=== PATIENT | male | born 1960 | race African-American/Black ===

== ENCOUNTER 2023-06-15 08:28 | Outpatient (AMB) | payer MEDICARE, MEDICAID, SELFPAY ==
[2023-06-15 08:44] VITALS: BP 184/82; PULSE 74; RESP 20; O2SAT 98; BMI 26.3
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
== END 2023-06-15 09:23 | disposition home or self-care (01) ==
PROVIDERS: PCP Internal Medicine; Visit Provider Registered Nurse Emergency
DX: M54.2 Cervicalgia (principal); G89.29 Other chronic pain; M47.812 Spondylosis without myelopathy or radiculopathy, cervical region; E11.9 Type 2 diabetes mellitus without complications
CPT/HCPCS: 99204

== ENCOUNTER → 2023-06-15 08:28 | Outpatient (BNVA) | payer MEDICARE, MEDICAID, SELFPAY | PROVIDERS: PCP Internal Medicine; Visit Provider Registered Nurse Emergency | DX: M54.2 Cervicalgia (principal); M47.812 Spondylosis without myelopathy or radiculopathy, cervical region; G89.29 Other chronic pain; E11.9 Type 2 diabetes mellitus without complications | CPT/HCPCS: 99202 ==

== ENCOUNTER 2023-08-10 13:26 | Outpatient (AMB) | payer MEDICARE, MEDICAID, SELFPAY ==
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
[2023-08-10 13:33] VITALS: BP 150/72; PULSE 73; O2SAT 97; BMI 25.1
== END 2023-08-10 14:01 | disposition home or self-care (01) ==
PROVIDERS: PCP Internal Medicine; Visit Provider Registered Nurse Emergency
DX: M47.812 Spondylosis without myelopathy or radiculopathy, cervical region (principal); R52 Pain, unspecified
CPT/HCPCS: 99214

== ENCOUNTER → 2023-08-10 13:26 | Outpatient (BNVA) | payer MEDICARE, MEDICAID, SELFPAY | PROVIDERS: PCP Internal Medicine; Visit Provider Registered Nurse Emergency | DX: M47.812 Spondylosis without myelopathy or radiculopathy, cervical region (principal); R52 Pain, unspecified | CPT/HCPCS: 99212 ==

== ENCOUNTER 2023-08-26 14:01 | Emergency (ER) | payer MEDICARE, MEDICAID, SELFPAY ==
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
[2023-08-26 14:11] VITALS: BP 155/89; BP 210/120; PULSE 75; PULSE 76; RESP 18; TEMP 36.9; O2SAT 96; O2SAT 98; BMI 25.1
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
== END 2023-08-26 17:07 | disposition left against medical advice (07) ==
PROVIDERS: Emergency Provider Emergency Medicine
DX: S00.11XA Contusion of right eyelid and periocular area, initial encounter (principal); Y04.2XXA Assault by strike against or bumped into by another person, initial encounter; Y93.9 Activity, unspecified; Y92.9 Unspecified place or not applicable; Y99.8 Other external cause status
CPT/HCPCS: 99281

== ENCOUNTER 2023-09-06 11:00 | Outpatient (RCR) | payer MEDICARE, MEDICAID, SELFPAY ==
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
== END 2023-10-05 13:50 | disposition home or self-care (01) ==
LOC: HO.PTCHIC 11:00
PROVIDERS: PCP Internal Medicine; Visit Provider Registered Nurse Emergency
DX: M47.812 Spondylosis without myelopathy or radiculopathy, cervical region (principal); M54.2 Cervicalgia; G89.29 Other chronic pain
CPT/HCPCS: 97110; 97140; 97162; 97164

== ENCOUNTER 2023-09-23 17:32 | Emergency (ER) | payer MEDICARE, MEDICAID, SELFPAY ==
[2023-09-23 17:39] VITALS: BP 162/82; PULSE 101; O2SAT 99
[2023-09-23 17:47] VITALS: BP 160/72; PULSE 95; RESP 18; TEMP 36.8; O2SAT 94; BMI 24.6
[2023-09-23 17:51] VITALS: BP 160/72; PULSE 95; RESP 18; TEMP 36.8; O2SAT 94
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
[2023-09-23 17:55] LABS: Glucose, Whole Blood 126 mg/dL (60-115)
--- NOTE | 2023-09-23 18:05 | ED.GENADULT ---
HPI - General Adult General Chief complaint: General Medical Stated complaint: Generalized health, took drugs but not cc Time Seen by Provider: 09/23/23 18:05 Source: patient and EMS Mode of arrival: EMS Limitations: no limitations History of Present Illness HPI narrative: Patient is a 62 year old assigned male at with a history of DM and drug use presenting to the emergency department today with concern of being in a diabetic emergency. Patient states that he was concerned that he was having a diabetic emergency cause he isn't entirely sure how to take care of his diabetes. Patient states that he has an appointment with an letter of credit clerk but has not seen one yet. Patient denies any dizziness, lightheadedness, abdominal pain, nausea, vomiting, fever, chills, blurry vision, double vision, loss of vision, chest pain, difficulty breathing, shortness of breath, back pain, night sweats, pain with urination, increased urinary frequency, increased urinary urgency, blood in his urine or stool, syncope or a near syncopal episode, recent trauma or falls, bowel incontinence, bladder incontinence, bowel retention, bladder retention, or any other complaints at this time. Relieving factors: none Exacerbating factors: none Associated symptoms: denies other symptoms Treatments prior to arrival: none Related Data Home Medications ?Medication ?Instructions ?Recorded ?Confirmed albuterol sulfate 90 mcg/actuation inhalation 06/06/23 aerosol inhaler (Ventolin HFA) amlodipine 10 mg tablet 10 mg PO DAILY 06/06/23 blood sugar diagnostic ([facility] #10 ea 06/06/23 Ultra Test strips) blood-glucose meter (OneTouch #1 ea 06/06/23 Ultra2 Meter) cyclobenzaprine 5 mg tablet 5 mg PO TID PRN 06/06/23 escitalopram oxalate 10 mg tablet 10 mg PO DAILY 06/06/23 fluticasone fur. 200 mcg-umeclid 1 ea inhalation DAILY 06/06/23 62.5 mcg-vilant 25 mcg inhalat.powder (Trelegy Ellipta) gabapentin 300 mg capsule 300 mg PO TID 06/06/23 glipizide 5 mg tablet, extended 5 mg PO DAILY 06/06/23 release 24 hr ibuprofen 600 mg tablet 600 mg PO BID PRN 06/06/23 lancets 33 gauge (OneTouch Delica #100 ea 06/06/23 Plus Lancet) lisinopril 20 mg tablet 20 mg PO DAILY 06/06/23 metformin 500 mg tablet,extended 500 mg PO BID 06/06/23 release 24 hr naloxone 4 mg/actuation nasal spray 1 spray intranasal DAILY 06/06/23 Previous Rx's ?Medication ?Instructions ?Recorded baclofen 5 mg tablet 5 mg PO TID #90 tabs 08/10/23 Allergies Allergy/AdvReac Type Severity Reaction Status Date / Time Penicillins Allergy Mild ITCHING Verified 09/23/23 17:49 Review of Systems Constitutional: Constitutional: Reports no additional constitutional complaints, Denies chills, Denies fever(s) and Denies night sweats Eyes: Eyes: Reports no additional eye complaints, Denies blurry vision, Denies change in vision, Denies diplopia, Denies eye discharge, Denies loss of vision and Denies eye pain ENT: Denies dizziness Cardiovascular: Cardiovascular: Reports no additional cardiovascular complaints, Denies chest pain, Denies lightheadedness, Denies Loss of Consciousness and Denies dyspnea Respiratory: Respiratory: Reports no additional respiratory complaints and Denies dyspnea Gastrointestinal: Gastrointestinal: Reports no additional gastrointestinal complaints, Denies abdominal pain, Denies melena, Denies hematochezia, Denies change in bowel habits and Denies change in stool character Genitourinary: Genitourinary: Reports no additional male genitourinary complaints, Denies hematuria, Denies oliguria, Denies difficulty urinating, Denies dysuria, Denies urinary frequency, Denies urinary hesitancy, Denies urinary incontinence and Denies urinary urgency Musculoskeletal: Musculoskeletal: Reports no additional musculoskeletal complaints, Denies numbness and Denies tingling Neurologic: Denies dizziness, Denies loss of vision, Denies numbness and Denies tingling Psychiatric: Psychiatric: Reports no additional psychiatric complaints Endocrine: Endocrine: Reports no additional endocrine complaints Hematologic/Lymphatic: Hematologic/Lymphatic: Reports no additional hematologic/lymphatic complaints Allergic/Immunologic: Allergic/Immunologic: Reports no additional allergic/immunologic complaints PMFSH Past Medical History Attestation statement: The following information was validated with the patient. Source: old records reviewed and nursing notes reviewed Medical History HTN (hypertension) Pancreatitis, alcoholic, acute Alcohol use Hepatic steatosis Anxiety and depression Chronic obstructive pulmonary disease, unspecified Chronic lumbar radiculopathy Insomnia, unspecified House dust mite allergy Perennial non-allergic rhinitis Former smoker Severe persistent asthma, uncomplicated Hyperlipidemia, unspecified Type 2 diabetes mellitus without complications Elevated IgE level Asthma Obesity, unspecified Gastro-esophageal reflux disease without esophagitis Chronic midline low back pain without sciatica Chronic pain Alcohol use disorder Neck pain Social History Social History Alcohol intake: current Alcohol intake frequency: 3 or more drinks per day Smoked in Last 30 Days: Yes Use of substances other than those prescribed or required for medical reasons: Yes Substance Use Type: Crack/Cocaine Substance Use Frequency: Daily Last Used Substance: Hours (ago) Advance Directives: No Advance Directives Information Provided: No Do you have a plan to hurt others: No Plan Physical Exam ED Vital Signs: Vital Signs - 24 hr 09/23/23 17:47 09/23/23 17:51 09/23/23 18:11 Temperature 98.3 F 98.3 F 98.3 F Pulse Rate 95 95 95 Respiratory Rate 18 18 18 Blood Pressure 160/72 H 160/72 H 160/72 H Pulse Oximetry 94 94 94 Oxygen Delivery Method Room Air Room Air Room Air BMI result Body Mass Index 24.6 Const General: cooperative, no acute distress, alert and awake Nutritional Appearance: well nourished Orientation/consciousness: patient oriented x3 Limitations: no limitations HENMT Head: Yes normal to inspection and Yes atraumatic Ears: hearing grossly normal bilaterally and external ears normal General nose exam: Normal external nose present, no nasal discharge noted and no epistaxis Face and sinus: Yes normal facial exam, No abrasion and No laceration Mouth: Normal oral and palatal mucosa present, no drooling and no muffled voice Eyes General: appearance normal, both eyes and all related structures Periorbital: periorbital findings normal Eyelids: Yes eyelids normal Conjunctivae: conjunctivae normal Pupils: Equal, round and reactive pupils present EOM: EOMs intact bilaterally Neck Neck: Yes normal visual inspection, Yes full ROM and Yes no lymphadenopathy Chest Chest palpation & inspection: normal inspection of the chest Resp Effort & Inspection: normal respiratory effort and able to speak in complete sentences GI Inspection: Yes normal to inspection Neuro General: patient oriented x3 and moves all extremities Cranial nerves: Yes Equal, round and reactive pupils present Cognition (Neuro): normal cognition Motor exam (neuro): 5/5 motor strength present throughout Sensory Exam: Normal double simultaneous stimulation for sensation Coordination: [id number] test normal Extrem General: Yes normal to inspection, Yes full ROM and Yes capillary refill normal Psych Appearance: grossly normal Mental Status: mental status grossly normal Affect: normal affect Attitude: cooperative Thought process: Normal thought process present Thought content: Normal thought content present Insight: Good insight present (Psych) Medical Decision Making Medical Decision Making [facility] Narrative: Patient is a 62 year old assigned male at with a history of DM and drug use presenting to the emergency department today concerned about having a diabetic emergency. Patient's physical exam was unremarkable. Patient's POC was 126. I explained my physical exam findings as well as all test results to the patient. I answered all questions asked by the patient. As soon as the patient's blood sugar was checked, the patient requested to leave. Patient stated that he just wanted to make sure his sugar was OK and does not want any testing done. I stressed the importance of the patient taking his medication as prescribed. I stressed the importance of the patient following up with his primary care provider. I stressed the importance of the patient returning to the emergency department immediately if he were to develop any dizziness, shortness of breath, difficulty breathing, chest pain, blurry vision, loss of vision, nausea, vomiting, abdominal pain, fever, chills, back pain, or any other complaints. Patient verbalized agreement and understanding with this treatment plan and discharge. Differential Diagnosis Differential Diagnoses: The differential diagnosis associated with the presentation includes Diabetes Blood sugar check Admission/Observation Consideration of admission/observation: Escalation of care including admission/observation considered Patient would have been admitted to the hospital had his work up had any findings where hospital admission was appropriate and his clinical presentation warranted hospital admission. Lab Data [facility] Lab Attestation statement: I reviewed the patient's lab results. My interpretation of these results are in the [facility] Rationale portion of this note. Labs: Lab Results 09/23/23 Range/Units 17:48 POC Glucose 126 H (60-115) mg/dL Independent Historian Clinical information obtained from an independent historian. History obtained from or confirmed by: EMS (EMS provided additional history and confirmed the history provided by the patient.) Tests considered The following testing was considered but not selected: I considered a CBC, CMP, Magnesium, and beta hydroxy however, the patient declined any testing after having his POC glucose checked. Chronic Conditions Patient?s care impacted by: Diabetes Discharge Plan Discharge Clinical Impression: Diabetes Patient Disposition: Home, Self-Care Instructions: Diabetes and Nutrition (ED) Additional Instructions: Follow up with your primary care provider. Return to the emergency department immediately if your symptoms worsen or if you develop any dizziness, shortness of breath, difficulty breathing, chest pain, blurry vision, loss of vision, nausea, vomiting, abdominal pain, fever, chills, back pain, or any other complaints. Prescriptions: No Action Trelegy Ellipta 200-62.5-25 mcg blister with device 1 ea inhalation DAILY metformin 500 mg tablet extended release 24 hr 500 mg PO BID albuterol sulfate [Ventolin HFA] 90 mcg/actuation HFA aerosol inhaler inhalation gabapentin 300 mg capsule 300 mg PO TID glipizide 5 mg tablet extended release 24hr 5 mg PO DAILY cyclobenzaprine 5 mg tablet 5 mg PO TID PRN escitalopram oxalate 10 mg tablet 10 mg PO DAILY (DME) lancets [OneTouch Delica Plus Lancet] 33 gauge misc See Rx Instructions .ROUTE DAILY Qty: 100 Rx Instructions: As directed (DME) OneTouch Ultra Test Strip See Rx Instructions .ROUTE DAILY Qty: 10 Rx Instructions: As directed (DME) blood-glucose meter [OneTouch Ultra2 Meter] Misc See Rx Instructions .ROUTE DAILY Qty: 1 Rx Instructions: As directed naloxone 4 mg/actuation spray,non-aerosol 1 spray intranasal DAILY ibuprofen 600 mg tablet 600 mg PO BID PRN lisinopril 20 mg tablet 20 mg PO DAILY amlodipine 10 mg tablet 10 mg PO DAILY baclofen 5 mg tablet 5 mg PO TID Qty: 90 3RF Rx Instructions: do not take with Cyclobenzaprine. Referrals: [facility] [place] Family Medicine [Provider Group] (Call to establish and follow up with a primary care provider. If you already have a primary care provider, please follow up with them.) [facility] [place] Primary Lukasz Koenig [Provider Group] [facility] [place] Primary Rosemary Koenig [Provider Group] Interventions: ED Discharge Assessment Last Done: 09/23/23 18:11 Discharge Date/Time: 09/23/23 18:15 Print Language: Yi
[2023-09-23 18:11] VITALS: BP 160/72; PULSE 95; RESP 18; TEMP 36.8; O2SAT 94
== END 2023-09-23 18:15 | disposition home or self-care (01) ==
LOC: HO.ED 18:09
PROVIDERS: Emergency Provider Emergency Medicine Emergency Medical Services; PCP Internal Medicine
DX: E11.9 Type 2 diabetes mellitus without complications (principal); I10 Essential (primary) hypertension; E78.5 Hyperlipidemia, unspecified; K85.20 Alcohol induced acute pancreatitis without necrosis or infection; F19.90 Other psychoactive substance use, unspecified, uncomplicated; J44.9 Chronic obstructive pulmonary disease, unspecified; Z87.891 Personal history of nicotine dependence; Z79.4 Long term (current) use of insulin; Z79.84 Long term (current) use of oral hypoglycemic drugs; Z79.85 Long-term (current) use of injectable non-insulin antidiabetic drugs
CPT/HCPCS: 82947; 99282; 99284

== ENCOUNTER 2023-09-26 22:03 | Emergency (ER) | payer MEDICARE, MEDICAID, SELFPAY ==
[2023-09-26 22:07] VITALS: BP 150/78; PULSE 91; RESP 16; TEMP 36.6; O2SAT 95; BMI 23.9
--- NOTE | 2023-09-26 22:25 | ED.PSYCH ---
HPI - Psych General Chief Complaint: Psychiatric Symptoms Stated Complaint: Crisis Time Seen by Provider: 09/26/23 22:20 Related Data Home Medications ?Medication ?Instructions ?Recorded ?Confirmed albuterol sulfate 90 mcg/actuation inhalation 06/06/23 aerosol inhaler (Ventolin HFA) amlodipine 10 mg tablet 10 mg PO DAILY 06/06/23 blood sugar diagnostic ([facility] #10 ea 06/06/23 Ultra Test strips) blood-glucose meter ([facility] #1 ea 06/06/23 Ultra2 Meter) cyclobenzaprine 5 mg tablet 5 mg PO TID PRN 06/06/23 escitalopram oxalate 10 mg tablet 10 mg PO DAILY 06/06/23 fluticasone fur. 200 mcg-umeclid 1 ea inhalation DAILY 06/06/23 62.5 mcg-vilant 25 mcg inhalat.powder (Trelegy Ellipta) gabapentin 300 mg capsule 300 mg PO TID 06/06/23 glipizide 5 mg tablet, extended 5 mg PO DAILY 06/06/23 release 24 hr ibuprofen 600 mg tablet 600 mg PO BID PRN 06/06/23 lancets 33 gauge ([facility] Delica #100 ea 06/06/23 Plus Lancet) lisinopril 20 mg tablet 20 mg PO DAILY 06/06/23 metformin 500 mg tablet,extended 500 mg PO BID 06/06/23 release 24 hr naloxone 4 mg/actuation nasal spray 1 spray intranasal DAILY 06/06/23 Previous Rx's ?Medication ?Instructions ?Recorded baclofen 5 mg tablet 5 mg PO TID #90 tabs 08/10/23 Allergies Allergy/AdvReac Type Severity Reaction Status Date / Time Penicillins Allergy Mild ITCHING Verified 09/26/23 22:13 [facility] Past Medical History Medical History HTN (hypertension) Pancreatitis, alcoholic, acute Alcohol use Hepatic steatosis Anxiety and depression Chronic obstructive pulmonary disease, unspecified Chronic lumbar radiculopathy Insomnia, unspecified House dust mite allergy Perennial non-allergic rhinitis Former smoker Severe persistent asthma, uncomplicated Hyperlipidemia, unspecified Type 2 diabetes mellitus without complications Elevated IgE level Asthma Obesity, unspecified Gastro-esophageal reflux disease without esophagitis Chronic midline low back pain without sciatica Chronic pain Alcohol use disorder Neck pain Social History Social History Alcohol intake: current Alcohol intake frequency: 3 or more drinks per day Substance Use Type: Crack/Cocaine Do you have a plan to hurt others: No Plan Physical Exam Vital Signs: Vital Signs: Last Vital Signs Temp 97.8 F 09/26/23 22:07 Pulse 91 09/26/23 22:07 Resp 16 09/26/23 22:07 BP 150/78 H 09/26/23 22:07 Pulse Ox 95 09/26/23 22:07 O2 Del Method Room Air 09/26/23 22:07 BMI result Body Mass Index 23.9 Course Course Course Narrative: -this is a rapid assessment -patient comes to the emergency room stating he would like to be seen by behavioral health. However, patient states that he is feeling depressed, no SI or HI. Patient states that before he comes in to the Behavioral Health pod, he would like to hear some input from his therapist's from behavioral health, whether he could go home or if he needs to come in to be seen by our behavioral health providers. Patient states that while he waits, he would prefer to go out in the waiting room. -patient denies suicidal or HI -patient was given the option of going to the Behavioral Health pots at this time. However, as mentioned above, patient requests more time to hear back from his providers outside in the waiting room. Per patient's request, patient is being put back in the waiting room Discharge Plan Discharge Clinical Impression: Depression Prescriptions: No Action Trelegy Ellipta 200-62.5-25 mcg blister with device 1 ea inhalation DAILY metformin 500 mg tablet extended release 24 hr 500 mg PO BID albuterol sulfate [Ventolin HFA] 90 mcg/actuation HFA aerosol inhaler inhalation gabapentin 300 mg capsule 300 mg PO TID glipizide 5 mg tablet extended release 24hr 5 mg PO DAILY cyclobenzaprine 5 mg tablet 5 mg PO TID PRN escitalopram oxalate 10 mg tablet 10 mg PO DAILY (DME) lancets [OneTouch Delica Plus Lancet] 33 gauge misc See Rx Instructions .ROUTE DAILY Qty: 100 Rx Instructions: As directed (DME) OneTouch Ultra Test Strip See Rx Instructions .ROUTE DAILY Qty: 10 Rx Instructions: As directed (DME) blood-glucose meter [OneTouch Ultra2 Meter] Misc See Rx Instructions .ROUTE DAILY Qty: 1 Rx Instructions: As directed naloxone 4 mg/actuation spray,non-aerosol 1 spray intranasal DAILY ibuprofen 600 mg tablet 600 mg PO BID PRN lisinopril 20 mg tablet 20 mg PO DAILY amlodipine 10 mg tablet 10 mg PO DAILY baclofen 5 mg tablet 5 mg PO TID Qty: 90 3RF Rx Instructions: do not take with Cyclobenzaprine. Print Language: Jordanian
--- NOTE | 2023-09-26 22:25 | PC.NURSE ---
pt wants to wait for his doctor to call back to see what his doctor wants him to do. dr farah did talk with the patient and is aware of the pt will be waiting in the waiting room.
--- NOTE | 2023-09-26 22:29 | PC.NURSE ---
pt did disclose he has been drinking, pt is calm and cooperative.
== END 2023-09-27 01:03 | disposition left against medical advice (07) ==
LOC: HO.ED 09-27 01:00
PROVIDERS: Emergency Provider Emergency Medicine
DX: F33.1 Major depressive disorder, recurrent, moderate (principal); Z79.899 Other long term (current) drug therapy
CPT/HCPCS: 99283

== ENCOUNTER 2023-10-28 21:32 | Emergency (ER) | payer MEDICARE, MEDICAID, SELFPAY ==
[2023-10-28 21:37] VITALS: BP 125/74; BP 168/98; PULSE 100; PULSE 117; RESP 20; TEMP 36.7; O2SAT 97; O2SAT 98; BMI 23.5
[2023-10-28 21:39] VITALS: BP 136/83; PULSE 108; RESP 18; TEMP 36.7; O2SAT 95
--- NOTE | 2023-10-28 22:34 | PC.NURSE ---
when pt arrived to the room security has gone through his belonging for alcohol and none was found. pt has been rude to security for just walking by his door. pt informed that those words will not be tolerated at [facility] [place]. pt has made racial remarks to staff.
--- NOTE | 2023-10-28 22:39 | ECG_ITS ---
Test Reason : ANXIETY Blood Pressure : / mmHG Vent. Rate : 088 BPM Atrial Rate : 088 BPM P-R Int : 150 ms QRS Dur : 092 ms QT Int : 362 ms P-R-T Axes : 069 062 067 degrees QTc Int : 438 ms Normal sinus rhythm Minimal voltage criteria for LVH, may be normal variant ( Sokolow-Saavedra ) Cannot rule out Anterior infarct , age undetermined Abnormal ECG When compared with ECG of 08-APR-2011 00:33, No significant change was found Referred By: Yelitza Mckeon Electronically Signed By:FRANKY PARSONS MD
[2023-10-28 23:03] LABS: MANUAL DIFF FLAG NO
[2023-10-28 23:04] LABS: Basophils Absolute Auto 0.1 X10*3/uL (0.0-0.2); Basophils Percent Auto 0.5 % (0-2); Eosinophils Absolute Auto 0.1 X10*3/uL (0.0-0.4); Eosinophils Percent Auto 0.6 % (0-4); Hematocrit 43.4 % (42.0-52.0); Hemoglobin 15.3 g/dl (14.0-18.0); Imm Gran Abs Auto 0.01 X10*3/uL (0.00-0.03); Imm Gran Pct Auto 0.1 % (0.0-0.4); Lymphocytes Absolute Auto 3.4 X10*3/uL (1.2-4.9); Lymphocytes Percent Auto 36.9 % (20-40); Mean Corpuscular HGB Conc 35.3 g/dl (31.0-36.0); Mean Corpuscular Hemoglobin 31.2 pg (27.0-33.0); Mean Corpuscular Volume 88.4 fL (80.0-98.0); Mean Platelet Volume 9.8 fL (9.4-12.4); Monocytes Absolute Auto 0.7 X10*3/uL (0.1-1.2); Monocytes Percent Auto 7.1 % (2-11); Neutrophils Absolute Auto 5.1 x10*3/uL (2.0-8.3); Neutrophils Percent Auto 54.8 % (45-73); Platelet Count 209 X10*3/uL (160-400); Red Blood Count 4.91 X10*6/uL (4.60-5.80); Red Cell Distribution Width 12.4 % (11.0-16.0); White Blood Count 9.3 X10*3/uL (4.8-10.8)
[2023-10-28 23:15] LABS: Alanine Aminotransferase 24 U/L (0-40); Albumin Level 4.4 g/dL (3.5-5.0); Alkaline Phosphatase 67 U/L (39-117); Anion Gap 19 (12-20); Aspartate Amino Transferase 23 U/L (5-37); Bilirubin Total 0.5 mg/dL (0.0-1.0); Blood Urea Nitrogen 10 mg/dL (9-16); Calcium 9.5 mg/dL (8.4-10.2); Carbon Dioxide 20 mmol/L (22-29); Chloride 100 mmol/L (96-108); Creatinine Clr Calc Pharmacy 83.2; Estimated Glomerular Filt Rate > 60; Ethanol 140 mg/dL; Glucose Random 303 mg/dL (60-115); Potassium 3.8 mmol/L (3.3-5.1); Sodium 135 mmol/L (135-145)
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
[2023-10-29 00:11] LABS: Amphetamine Screen Urine Not Detected (Not Detect); Barbiturates, Urine Not Detected (Not Detect); Benzodiazepines Screen Urine Not Detected (Not Detect); Buprenorphine Scr Not Detected (Not Detect); Cannabinoid Screen Urine Not Detected (Not Detect); Cocaine Screen Urine POSITIVE (Not Detect); Fentanyl, urine Not Detected (Not Detect); Methadone Screen, Urine Not Detected (Not Detect); Opiate Screen Urine Not Detected (Not Detect); Oxycodone Screen Urine Not Detected (Not Detect); Phencyclidine Screen Urine Not Detected (Not Detect)
[2023-10-29 06:31] VITALS: BP 112/62; PULSE 74; RESP 18; TEMP 36.6; O2SAT 94
--- NOTE | 2023-10-29 10:00 | PC.NURSE ---
CARE TEAM AT BEDSIDE
[2023-10-29 10:46] VITALS: BP 144/80; PULSE 74; RESP 18; TEMP 36.8; O2SAT 97
[2023-10-29 13:51] VITALS: BP 144/80; PULSE 74; RESP 18; TEMP 36.8; O2SAT 97
== END 2023-10-29 13:51 | disposition left against medical advice (07) ==
PROVIDERS: Emergency Provider Student in an Organized Health Care Education/Training Program; PCP Internal Medicine
DX: F32.A Depression, unspecified (principal); R45.851 Suicidal ideations; F19.10 Other psychoactive substance abuse, uncomplicated; F10.10 Alcohol abuse, uncomplicated; Y90.6 Blood alcohol level of 120-199 mg/100 ml; F41.9 Anxiety disorder, unspecified; Z91.51 Personal history of suicidal behavior; I10 Essential (primary) hypertension; J44.9 Chronic obstructive pulmonary disease, unspecified; E11.9 Type 2 diabetes mellitus without complications; E78.5 Hyperlipidemia, unspecified; J45.50 Severe persistent asthma, uncomplicated; Z79.84 Long term (current) use of oral hypoglycemic drugs; Z79.899 Other long term (current) drug therapy
CPT/HCPCS: 36415; 80053; 80307; 85025; 93005; 99284; 99285; S9485

== ENCOUNTER → 2023-10-28 22:39 | Outpatient (BNV) | payer MEDICARE, MEDICAID, SELFPAY | PROVIDERS: Emergency Provider Student in an Organized Health Care Education/Training Program; PCP Internal Medicine; Visit Provider Internal Medicine Cardiovascular Disease | DX: R94.31 Abnormal electrocardiogram [ECG] [EKG] (principal) | CPT/HCPCS: 93010 ==

== ENCOUNTER 2023-11-25 17:54 | Emergency (ER) | payer MEDICARE, MEDICAID, SELFPAY ==
[2023-11-25 18:04] VITALS: BP 116/70; BP 123/77; PULSE 87; PULSE 94; RESP 18; TEMP 37.1; O2SAT 95
[2023-11-25 18:12] LABS: Glucose, Whole Blood 332 mg/dL (60-115)
--- NOTE | 2023-11-25 18:16 | ED.GENADULT ---
HPI - General Adult General Chief complaint: Psychiatric Symptoms Stated complaint: HAD CRACK COCAINE 30 MINS AGO,POC 424 HAS DIABETES Time Seen by Provider: 11/25/23 18:16 Source: patient and EMS Mode of arrival: EMS Limitations: no limitations History of Present Illness ED Provider: Slime Ponce PA-C HPI narrative: Patient is a 62 year old assigned male at with a history of crack use and diabetes presenting to the emergency department today with homicidal ideation after crack cocaine use. Patient states that he used crack cocaine earlier and now has thoughts of hurting others. Patient denies any dizziness, lightheadedness, abdominal pain, nausea, vomiting, fever, chills, blurry vision, double vision, loss of vision, chest pain, difficulty breathing, shortness of breath, back pain, night sweats, pain with urination, increased urinary frequency, increased urinary urgency, blood in his urine or stool, syncope or a near syncopal episode, recent trauma or falls, bowel incontinence, bladder incontinence, or any other complaints at this time. Onset (ago): hour(s) Relieving factors: none Exacerbating factors: none Associated symptoms: denies other symptoms Treatments prior to arrival: none Related Data Home Medications ?Medication ?Instructions ?Recorded ?Confirmed albuterol sulfate 90 mcg/actuation inhalation 06/06/23 aerosol inhaler (Ventolin HFA) amlodipine 10 mg tablet 10 mg PO DAILY 06/06/23 [facility] Ultra Test strips) blood-glucose meter (OneTouch #1 ea 06/06/23 Ultra2 Meter) cyclobenzaprine 5 mg tablet 5 mg PO TID PRN 06/06/23 escitalopram oxalate 10 mg tablet 10 mg PO DAILY 06/06/23 fluticasone fur. 200 mcg-umeclid 1 ea inhalation DAILY 06/06/23 62.5 mcg-vilant 25 mcg inhalat.powder (Trelegy Ellipta) gabapentin 300 mg capsule 300 mg PO TID 06/06/23 glipizide 5 mg tablet, extended 5 mg PO DAILY 06/06/23 release 24 hr ibuprofen 600 mg tablet 600 mg PO BID PRN 06/06/23 lancets 33 gauge (OneTouch Delica #100 ea 06/06/23 Plus Lancet) lisinopril 20 mg tablet 20 mg PO DAILY 06/06/23 metformin 500 mg tablet,extended 500 mg PO BID 06/06/23 release 24 hr naloxone 4 mg/actuation nasal spray 1 spray intranasal DAILY 06/06/23 Previous Rx's ?Medication ?Instructions ?Recorded baclofen 5 mg tablet 5 mg PO TID #90 tabs 08/10/23 Allergies Allergy/AdvReac Type Severity Reaction Status Date / Time Penicillins Allergy Mild ITCHING Verified 11/25/23 18:22 Review of Systems Constitutional: Constitutional: Reports no additional constitutional complaints, Denies chills, Denies fever(s) and Denies night sweats Eyes: Eyes: Reports no additional eye complaints, Denies blurry vision, Denies change in vision, Denies diplopia, Denies eye discharge, Denies loss of vision and Denies eye pain ENT: Denies dizziness Cardiovascular: Cardiovascular: Reports no additional cardiovascular complaints, Denies chest pain, Denies lightheadedness, Denies Loss of Consciousness and Denies dyspnea Respiratory: Respiratory: Reports no additional respiratory complaints and Denies dyspnea Gastrointestinal: Gastrointestinal: Reports no additional gastrointestinal complaints, Denies abdominal pain, Denies melena, Denies hematochezia, Denies change in bowel habits and Denies change in stool character Genitourinary: Genitourinary: Reports no additional male genitourinary complaints, Denies hematuria, Denies oliguria, Denies difficulty urinating, Denies dysuria, Denies urinary frequency, Denies urinary hesitancy, Denies urinary incontinence and Denies urinary urgency Musculoskeletal: Musculoskeletal: Reports no additional musculoskeletal complaints, Denies numbness and Denies tingling Neurologic: Denies dizziness, Denies loss of vision, Denies numbness and Denies tingling Psychiatric: Psychiatric: Reports homicidal ideation and Denies suicidal ideation Endocrine: Endocrine: Reports no additional endocrine complaints Hematologic/Lymphatic: Hematologic/Lymphatic: Reports no additional hematologic/lymphatic complaints Allergic/Immunologic: Allergic/Immunologic: Reports no additional allergic/immunologic complaints PMFSH Past Medical History Attestation statement: The following information was validated with the patient. Source: old records reviewed and nursing notes reviewed Medical History HTN (hypertension) Pancreatitis, alcoholic, acute Alcohol use Hepatic steatosis Anxiety and depression Chronic obstructive pulmonary disease, unspecified Chronic lumbar radiculopathy Insomnia, unspecified House dust mite allergy Perennial non-allergic rhinitis Former smoker Severe persistent asthma, uncomplicated Hyperlipidemia, unspecified Type 2 diabetes mellitus without complications Elevated IgE level Asthma Obesity, unspecified Gastro-esophageal reflux disease without esophagitis Chronic midline low back pain without sciatica Chronic pain Alcohol use disorder Neck pain Social History Social History Alcohol intake: current Alcohol intake frequency: 3 or more drinks per day Alcohol type: beer and hard liquor Smoked in Last 30 Days: Yes Use of substances other than those prescribed or required for medical reasons: Yes Substance Use Type: Crack/Cocaine Advance Directives: No Advance Directives Information Provided: No Do you have a plan to hurt others: No Plan Physical Exam ED Vital Signs: Vital Signs - 24 hr 11/25/23 18:04 11/25/23 18:20 11/25/23 21:09 Temperature 98.7 F 98.7 F 98.4 F Pulse Rate 87 88 70 Respiratory Rate 18 18 16 Blood Pressure 116/70 116/70 113/63 Pulse Oximetry 95 96 97 Oxygen Delivery Method Room Air Room Air Room Air BMI result Body Mass Index 24.4 Const General: cooperative, no acute distress, alert and awake Nutritional Appearance: well nourished Orientation/consciousness: patient oriented x3 Limitations: no limitations HENMT Head: Yes normal to inspection and Yes atraumatic Ears: hearing grossly normal bilaterally and external ears normal General nose exam: Normal external nose present, no nasal discharge noted and no epistaxis Face and sinus: Yes normal facial exam, No abrasion and No laceration Mouth: Normal oral and palatal mucosa present, no drooling and no muffled voice Eyes General: appearance normal, both eyes and all related structures Periorbital: periorbital findings normal Eyelids: Yes eyelids normal Conjunctivae: conjunctivae normal Pupils: Equal, round and reactive pupils present EOM: EOMs intact bilaterally Neck Neck: Yes normal visual inspection, Yes full ROM and Yes no lymphadenopathy Chest Chest palpation & inspection: normal inspection of the chest Resp Effort & Inspection: normal respiratory effort and able to speak in complete sentences GI Inspection: Yes normal to inspection Neuro General: patient oriented x3 and moves all extremities Cranial nerves: Yes Equal, round and reactive pupils present Cognition (Neuro): normal cognition Extrem General: Yes normal to inspection, Yes full ROM and Yes capillary refill normal Psych Appearance: grossly normal Mental Status: mental status grossly normal Affect: Hostile affect present Thought content: Homicidality present Medications Administered Discontinued Medications Generic Name Dose Route Start Last Admin Trade Name Minerva PRN Reason Stop Dose Admin Sodium Chloride 1,000 mls @ 999 mls/hr 11/25/23 18:30 11/25/23 20:31 Ns IV 11/25/23 19:30 Infused .Q1H1M URBAN Infusion Medical Decision Making Medical Decision Making [facility] Narrative: Patient is a 62 year old assigned male at with a history of DM and crack use presenting to the emergency department today with homicidal ideation. Patient's physical exam was as noted in the physical exam portion of this note. Patient's blood work was unremarkable. I explained my physical exam findings as well as all test results to the patient. I answered all questions asked by the patient. Patient remains in the department pending CARE team evaluation. Differential Diagnosis Differential Diagnoses: The differential diagnosis associated with the presentation includes Homicidal ideation Admission/Observation Consideration of admission/observation: Escalation of care including admission/observation considered Patient's disposition will be determined after CARE team evaluation. Lab Data [facility] Lab Attestation statement: I reviewed the patient's lab results. My interpretation of these results are in the MDM Rationale portion of this note. 11/25/23 19:00 11/25/23 19:00 Labs: Lab Results 11/25/23 11/25/23 Range/Units 18:03 19:00 WBC 4.7 L (4.8-10.8) X10*3/uL RBC 4.59 L (4.60-5.80) X10*6/uL Hgb 14.5 (14.0-18.0) g/dl Hct 42.2 (42.0-52.0) % MCV 91.9 (80.0-98.0) fL MCH 31.6 (27.0-33.0) pg MCHC 34.4 (31.0-36.0) g/dl RDW 13.6 (11.0-16.0) % Plt Count 169 (160-400) X10*3/uL MPV 10.0 (9.4-12.4) fL Immature Gran % (Auto) 0.2 (0.0-0.4) % Neut % (Auto) 60.4 (45-73) % Lymph % (Auto) 23.0 (20-40) % [place] % (Auto) 14.9 H (2-11) % Eos % (Auto) 0.9 (0-4) % Baso % (Auto) 0.6 (0-2) % Lymph # (Auto) 1.1 L (1.2-4.9) X10*3/uL [place] # (Auto) 0.7 (0.1-1.2) X10*3/uL Eos # (Auto) 0.0 (0.0-0.4) X10*3/uL Baso # (Auto) 0.0 (0.0-0.2) X10*3/uL Abs Immat Gran (auto) 0.01 (0.00-0.03) X10*3/uL Absolute Neuts (auto) 2.8 (2.0-8.3) x10*3/uL Absolute Nucleated RBC 0.000 (0.0-0.012) X10*3/uL Nucleated RBC % (auto) 0.0 (0.0-0.2) /100WBC Sodium 139 (135-145) mmol/L Potassium 3.8 (3.3-5.1) mmol/L Chloride 101 (96-108) mmol/L Carbon Dioxide 26 (22-29) mmol/L Anion Gap 16 (12-20) BUN 11 (9-16) mg/dL Creatinine 1.03 (0.5-1.4) mg/dL Estim Creat Clear Calc 71.9 Estimated GFR > 60 POC Glucose 332 H (60-115) mg/dL Random Glucose 361 H* (60-115) mg/dL Calcium 8.9 D (8.4-10.2) mg/dL Magnesium 1.9 (1.6-2.6) mg/dL Total Bilirubin 0.3 (0.0-1.0) mg/dL AST 27 (5-37) U/L ALT 24 (0-40) U/L Alkaline Phosphatase 63 (39-117) U/L Total Protein 6.8 (6.5-8.0) g/dL Albumin 4.0 (3.5-5.0) g/dL Ethyl Alcohol 108 mg/dL Influenza Type A (PCR) NEGATIVE (Negative) Influenza Type B (PCR) NEGATIVE (Negative) RSV RNA Qual (PCR) NEGATIVE (Negative) SARS-CoV-2 RNA (RT-PCR) NEGATIVE (Negative) Independent Historian Clinical information obtained from an independent historian. History obtained from or confirmed by: EMS (EMS provided additional history and confirmed the history provided by the patient.) Chronic Conditions Patient?s care impacted by: Diabetes Critical Care Time Critical Care Time Critical Care Time: Yes Total Critical Care Time: 34 Attestation: I spent 34 minutes of Critical Care Time with this patient. This does not include time spent on separately reported billable procedures. Discharge Plan Discharge Clinical Impression: Diabetes, Homicidal ideation Patient Disposition: Still a Patient Prescriptions: No Action Trelegy Ellipta 200-62.5-25 mcg blister with device 1 ea inhalation DAILY metformin 500 mg tablet extended release 24 hr 500 mg PO BID albuterol sulfate [Ventolin HFA] 90 mcg/actuation HFA aerosol inhaler inhalation gabapentin 300 mg capsule 300 mg PO TID glipizide 5 mg tablet extended release 24hr 5 mg PO DAILY cyclobenzaprine 5 mg tablet 5 mg PO TID PRN escitalopram oxalate 10 mg tablet 10 mg PO DAILY (DME) lancets [OneTouch Delica Plus Lancet] 33 gauge misc See Rx Instructions .ROUTE DAILY Qty: 100 Rx Instructions: As directed (DME) OneTouch Ultra Test Strip See Rx Instructions .ROUTE DAILY Qty: 10 Rx Instructions: As directed (DME) blood-glucose meter [OneTouch Ultra2 Meter] Misc See Rx Instructions .ROUTE DAILY Qty: 1 Rx Instructions: As directed naloxone 4 mg/actuation spray,non-aerosol 1 spray intranasal DAILY ibuprofen 600 mg tablet 600 mg PO BID PRN lisinopril 20 mg tablet 20 mg PO DAILY amlodipine 10 mg tablet 10 mg PO DAILY baclofen 5 mg tablet 5 mg PO TID Qty: 90 3RF Rx Instructions: do not take with Cyclobenzaprine. Print Language: [place]
[2023-11-25 18:20] VITALS: BP 116/70; PULSE 88; RESP 18; TEMP 37.1; O2SAT 96; BMI 24.4
--- NOTE | 2023-11-25 18:29 | PC.NURSE ---
Pt presents to ED via EMS from liquor store. Reports he used crack/cocaine approx 1 hour ago, feels weak and generally unwell. Reports he is diabetic, has not been taking his meds recently, no insulin. BGL high for EMS and here in ER. Reports feelings of HI, vague, no plan, just states I want to hurt other people . Denies SI or any pain. Alert and oriented, breathing even and unlabored. IV placed by EMS, 18G in left AC, 250 NS given in field.
--- NOTE | 2023-11-25 18:31 | PC.NURSE ---
Pt changed over with security and placed in safety clothing. Belongings secured in pod. 1:1 sitter.
[2023-11-25] MEDS: 0.9 % Sodium Chloride 1,000 ML 999 ML IV (18:32)
--- NOTE | 2023-11-25 18:38 | MHC.EDTECH ---
PT BELONGINGS IN THE LAUNDRY CLOSET
[2023-11-25 19:03] LABS: MANUAL DIFF FLAG NO
[2023-11-25 19:08] LABS: Basophils Percent Auto 0.6 % (0-2); Eosinophils Percent Auto 0.9 % (0-4); Hematocrit 42.2 % (42.0-52.0); Hemoglobin 14.5 g/dl (14.0-18.0); Imm Gran Abs Auto 0.01 X10*3/uL (0.00-0.03); Imm Gran Pct Auto 0.2 % (0.0-0.4); Lymphocytes Absolute Auto 1.1 X10*3/uL (1.2-4.9); Mean Corpuscular HGB Conc 34.4 g/dl (31.0-36.0); Mean Corpuscular Hemoglobin 31.6 pg (27.0-33.0); Mean Corpuscular Volume 91.9 fL (80.0-98.0); Monocytes Absolute Auto 0.7 X10*3/uL (0.1-1.2); Monocytes Percent Auto 14.9 % (2-11); Neutrophils Absolute Auto 2.8 x10*3/uL (2.0-8.3); Neutrophils Percent Auto 60.4 % (45-73); Platelet Count 169 X10*3/uL (160-400); Red Blood Count 4.59 X10*6/uL (4.60-5.80); Red Cell Distribution Width 13.6 % (11.0-16.0); White Blood Count 4.7 X10*3/uL (4.8-10.8)
[2023-11-25 19:32] LABS: Glucose Random 361 mg/dL (60-115)
[2023-11-25 19:33] LABS: Alanine Aminotransferase 24 U/L (0-40); Alkaline Phosphatase 63 U/L (39-117); Anion Gap 16 (12-20); Aspartate Amino Transferase 27 U/L (5-37); Bilirubin Total 0.3 mg/dL (0.0-1.0); Blood Urea Nitrogen 11 mg/dL (9-16); Calcium 8.9 mg/dL (8.4-10.2); Carbon Dioxide 26 mmol/L (22-29); Chloride 101 mmol/L (96-108); Creatinine Clr Calc Pharmacy 71.9; Estimated Glomerular Filt Rate > 60; Magnesium 1.9 mg/dL (1.6-2.6); Potassium 3.8 mmol/L (3.3-5.1); Sodium 139 mmol/L (135-145); Total Protein 6.8 g/dL (6.5-8.0)
[2023-11-25 19:47] LABS: Influenza A PCR NEGATIVE (Negative); Influenza B PCR NEGATIVE (Negative); Resp Syncy Virus RNA Qual PCR NEGATIVE (Negative); SARS COV2 PCR INHOUSE NEGATIVE (Negative)
[2023-11-25 21:09] VITALS: BP 113/63; PULSE 70; RESP 16; TEMP 36.9; O2SAT 97
--- NOTE | 2023-11-25 22:13 | PC.NURSE ---
Pt does report daily drinking, when asked amount reports whatever I feel like , hard liquor and beer. Denies hx of alcohol withdrawals. CIWA done
[2023-11-25 22:35] LABS: Ethanol 108 mg/dL
[2023-11-26 06:28] VITALS: RESP 16
--- NOTE | 2023-11-26 07:11 | PC.NURSE ---
Assumed care of patient at 0645. No signs of distress, breathing is even and unlabored. Patient is observed resting quietly in their bed.
[2023-11-26 07:15] LABS: Glucose, Whole Blood 168 mg/dL (60-115)
[2023-11-26 07:57] LABS: Amphetamine Screen Urine Not Detected (Not Detect); Barbiturates, Urine Not Detected (Not Detect); Benzodiazepines Screen Urine POSITIVE (Not Detect); Buprenorphine Scr Not Detected (Not Detect); Cannabinoid Screen Urine Not Detected (Not Detect); Cocaine Screen Urine POSITIVE (Not Detect); Fentanyl, urine POSITIVE (Not Detect); Methadone Screen, Urine Not Detected (Not Detect); Opiate Screen Urine Not Detected (Not Detect); Oxycodone Screen Urine Not Detected (Not Detect); Phencyclidine Screen Urine Not Detected (Not Detect)
[2023-11-26 09:59] VITALS: BP 131/83; PULSE 66; RESP 17; TEMP 36.2; O2SAT 98
[2023-11-26 11:37] VITALS: BP 131/83; PULSE 66; RESP 17; TEMP 36.2; O2SAT 98
--- NOTE | 2023-11-26 12:12 | MHC.CARE ---
Pt has been placed on a 7 day alert with [facility].
== END 2023-11-26 11:44 | disposition home or self-care (01) ==
PROVIDERS: Physician Assistant Medical; Emergency Provider Emergency Medicine Emergency Medical Services
DX: F14.10 Cocaine abuse, uncomplicated (principal); R45.850 Homicidal ideations; E11.9 Type 2 diabetes mellitus without complications; Z03.818 Encounter for observation for suspected exposure to other biological agents ruled out; J45.909 Unspecified asthma, uncomplicated; Z79.84 Long term (current) use of oral hypoglycemic drugs; Z79.899 Other long term (current) drug therapy
CPT/HCPCS: 0241U; 36415; 80053; 80307; 82947; 83735; 85025; 96360; 96361; 99285; S9485

== ENCOUNTER 2024-01-06 11:25 | Outpatient (AMB) | payer MEDICARE, MEDICAID, SELFPAY ==
--- NOTE | 2024-01-06 11:30 | MHC.OFFWIV ---
Intake Vital Signs 01/06/24 11:32 Height 5 ft 8 in Weight 164 lb BMI 24.9 BP 132/74 Blood Pressure Location Rt brachial Position Sitting Pulse 81 Pulse Source Pulse Oximeter Temp 98.6 F Temp Source Oral Pulse Oximetry (%) 98 Oxygen Delivery Method Room Air Intake Visit Reasons: EP cold symptoms Patient Tobacco Use Status: Former Tobacco user Allergies Penicillins Allergy (Mild, Verified 01/06/24 11:30) ITCHING Do you need a note to return to daycare/school/sports/work: Yes HPI EP cold symptoms HPI Details pt c/o cold symptoms. Cough, stuffy nose, chest tightness. Started yesterday. Patient is up-to-date with flu and COVID shots but declines COVID/flu/RSV testing today History of asthma PFSH Medical History HTN (hypertension) Pancreatitis, alcoholic, acute Alcohol use Hepatic steatosis Anxiety and depression Chronic obstructive pulmonary disease, unspecified Chronic lumbar radiculopathy Insomnia, unspecified House dust mite allergy Perennial non-allergic rhinitis Former smoker Severe persistent asthma, uncomplicated Hyperlipidemia, unspecified Type 2 diabetes mellitus without complications Elevated IgE level Asthma Obesity, unspecified Gastro-esophageal reflux disease without esophagitis Chronic midline low back pain without sciatica Chronic pain Alcohol use disorder Neck pain Social History Alcohol intake: current Alcohol intake frequency: 3 or more drinks per day Alcohol type: beer and hard liquor Patient Tobacco Use Status: Former Tobacco user Substance Use Type: Crack/Cocaine Review of Systems Const Denies chills, Denies fatigue, Denies fever(s), Denies headache(s) and Denies weakness ENT Denies dizziness and Denies headache(s) Card Details: No chest pain Denies chest pain, Denies lightheadedness, Denies dyspnea and Denies other (Palpitations) Resp Details: Mild inspiratory tightness Cough and mild wheeze Denies cough, Denies dyspnea, Denies wheezing and Denies other ( shortness of breath) Musc Denies numbness and Denies tingling Neuro Denies dizziness, Denies headache(s), Denies numbness, Denies tingling, Denies paresthesias and Denies weakness Psych Denies anxiety and Denies depression Endo Denies fatigue Aller/Immun Denies wheezing Physical Exam Vital Signs: Last Vital Signs Temp 98.6 F 01/06/24 11:32 Pulse 81 01/06/24 11:32 BP 132/74 01/06/24 11:32 Pulse Ox 98 01/06/24 11:32 Oxygen Delivery Method Room Air 01/06/24 11:32 BMI result Body Mass Index 24.9 Const General: no acute distress and well developed Nutritional Appearance: well nourished Orientation/consciousness: patient oriented x3 HEENT Head: Yes normocephalic and Yes atraumatic Eyes General: appearance normal, both eyes and all related structures Pupils: Equal, round and reactive pupils present EOM: EOMs intact bilaterally Resp Other: Coarse breath sounds with Scattered wheezing bilaterally and crackles at bilateral bases. Effort & Inspection: normal respiratory effort Auscultation: clear to auscultation bilaterally Cardio Rate: regular rate Rhythm: regular rhythm Heart sounds: S1 normal heart sound present, S2 normal heart sound present, no gallops, no murmurs and no rubs Neuro General: patient oriented x3 and gait normal Cranial nerves: Yes Equal, round and reactive pupils present Psych Affect: normal affect Assessment & Plan Assessment & Plan (1) Bronchitis: Code(s): J40 - Bronchitis, not specified as acute or chronic Plan: Likely bronchitis Patient says that Z-Tomás does not help him. Will give him levofloxacin Prednisone taper -watch blood sugars Use albuterol every 4 hours while sick Patient declined COVID/flu/RSV testing. Call or return to office if not improving Medications: New prednisone 3 tabs x 2 days then 2 tabs x 2 days then 1 tab x 2 days then 1/2 tab x 2 days orally daily; 8 days 13 tabs 0RF levofloxacin 750 mg PO Q24H 7 days 7 tabs 0RF Coding Level of Care Code Est Pt Level 3 (05629) Diagnoses Bronchitis J40
[2024-01-06 11:32] VITALS: BP 132/74; PULSE 81; TEMP 37; O2SAT 98; BMI 24.9
== END 2024-01-06 12:34 | disposition home or self-care (01) ==
PROVIDERS: PCP Internal Medicine; Visit Provider Family Medicine
DX: J40 Bronchitis, not specified as acute or chronic (principal)
CPT/HCPCS: 99213

== ENCOUNTER 2024-03-28 13:10 | Outpatient (AMB) | payer MEDICARE, MEDICAID, SELFPAY ==
[2024-03-28 13:37] VITALS: BP 162/78; PULSE 77; O2SAT 98; BMI 25.1
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
== END 2024-03-28 13:56 | disposition home or self-care (01) ==
LOC: HO.PMC 13:11
PROVIDERS: PCP Internal Medicine; Visit Provider Registered Nurse Emergency
DX: M47.812 Spondylosis without myelopathy or radiculopathy, cervical region (principal); R52 Pain, unspecified
CPT/HCPCS: 99213; G2211

== ENCOUNTER → 2024-03-28 13:10 | Outpatient (BNVA) | payer MEDICARE, MEDICAID, SELFPAY | PROVIDERS: PCP Internal Medicine; Visit Provider Registered Nurse Emergency | DX: M47.812 Spondylosis without myelopathy or radiculopathy, cervical region (principal); R52 Pain, unspecified | CPT/HCPCS: 99212 ==

== ENCOUNTER 2024-08-16 14:05 | Outpatient (AMB) | payer OTHER, SELFPAY ==
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
[2024-08-16 14:20] VITALS: BP 171/92; PULSE 102; O2SAT 98; BMI 29.2
== END 2024-08-16 14:41 | disposition home or self-care (01) ==
LOC: HO.PMC 14:05
PROVIDERS: PCP Internal Medicine; Visit Provider Registered Nurse Emergency
DX: M47.812 Spondylosis without myelopathy or radiculopathy, cervical region (principal); M54.12 Radiculopathy, cervical region; R20.2 Paresthesia of skin; M54.2 Cervicalgia; G89.29 Other chronic pain
CPT/HCPCS: 99213; G2211

== ENCOUNTER → 2024-08-16 14:05 | Outpatient (BNVA) | payer OTHER, SELFPAY | PROVIDERS: PCP Internal Medicine; Visit Provider Registered Nurse Emergency | DX: M47.812 Spondylosis without myelopathy or radiculopathy, cervical region (principal); M54.12 Radiculopathy, cervical region; M54.2 Cervicalgia; R20.2 Paresthesia of skin; G89.29 Other chronic pain | CPT/HCPCS: 99212 ==

== ENCOUNTER 2024-08-23 14:17 | Outpatient (REF) | payer OTHER, SELFPAY ==
--- OUTSIDE RECORDS SUMMARY | 2024-08-23 15:54 | XMS_ITS | Clinical Summary ---
Author Organization [facility] Address [address] [place] [address] Care Team Providers Care Maintenance Coordinator Name Role Phone Flor Coffey MD Primary Care Provider [phone] Allergies No known active allergies Medications Medication Sig Dispensed Refills Start Date End Date Status albuterol (PROVENTIL) (2.5 MG/3ML) 0.083% nebulizer solution USE 1 VIAL IN NEBULIZER EVERY 4 HOURS NEEDED FOR WHEEZING 0 10/26/2021 Active Ventolin HFA 108 (90 Base) MCG/ACT inhaler INHALE 2 PUFFS BY MOUTH EVERY 4 HOURS NEEDED FOR COUGH, WHEEZING OR SHORTNESS OF BREATH 0 09/06/2021 Active escitalopram (LEXAPRO) tablet 10 mg Take 10 mg by mouth daily. 0 08/31/2021 Active Trelegy Ellipta 200-62.5-25 MCG/INH AEPB 0 11/05/2021 Active gabapentin (NEURONTIN) 600 MG tablet Take 600 mg by mouth 3 (three) times a day. 0 09/23/2021 Active lisinopril (PRINIVIL,ZESTRIL) tablet 20 mg TAKE 1 TABLET BY MOUTH ONCE DAILY NEED LABS DONE FOR FURTHER REFILLS 0 09/22/2021 Active montelukast (SINGULAIR) 10 MG tablet Take 10 mg by mouth every night at bedtime. 0 10/20/2021 Active predniSONE (DELTASONE) tablet 20 mg 0 11/04/2021 Active traZODone (DESYREL) 50 MG tablet TAKE 1 & 1/2 (ONE & ONE-HALF) TABLETS BY MOUTH AT BEDTIME LABS NEEDED 0 09/22/2021 Active Active Problems Problem Noted Date Diagnosed Date Severe persistent asthma without complication Social History Tobacco Use Types Packs/Day Years Used Date Smoking Tobacco: Never Assessed Sex and Gender Information Value Date Recorded Sex Assigned at Male 09/29/2021 10:54 AM EDT Gender Identity Not on file Sexual Orientation Not on file Job Start Date Occupation Industry Not on file Not on file Not on file Last Filed Vital Signs Vital Sign Reading Time Taken Comments Blood Pressure 100/67 02/14/2022 1:17 PM EDT Pulse 94 02/14/2022 12:00 PM EDT Temperature 36.1 ??C (96.9 ??F) 02/14/2022 12:00 PM E DT Respiratory Rate 18 02/14/2022 12:00 PM EDT Oxygen Saturation 95% 02/14/2022 12:00 PM EDT Inhaled Oxygen Concentration - - Weight - - Height - - Body Mass Index - - Plan of Treatment Health Maintenance Due Date Last Done Comments Hepatitis C Screening 1960 COVID-19 Vaccine (#1) 06/21/1961 Depression Screening 1972 Preventative Health Evaluation 1978 DTap / Tdap / Td (1 - Tdap) 12/20/1979 Colon Cancer Screening (Colonoscopy) 2005 Shingrix-Zoster Vaccine (1 of 2) 2010 Influenza Vaccine (#1) 2024 RSV Adult > 60+ Yrs or Pregn ant (1 - 1-dose 75+ series) 12/20/2035 Hepatitis B Vaccines Aged Out No long er eligible based on patient's age to complete this topic Pneumococcal Vaccine Aged Out No long er eligible based on patient's age to complete this topic RSV Ped < 20 months Aged Out No longe r eligible based on patient's age to complete this topic Care Teams Maintenance Coordinator Relationship Specialty Start Date End Date Flor Coffey MD PCP - General Internal Medicine 09/29/21
--- OUTSIDE RECORDS SUMMARY | 2024-08-23 15:54 | XMS_ITS | Clinical Summary ---
Author Organization [address] Address [address] [place] [address] [place] [address] Phone Care Team Providers Care Rigging Slinger Name Role Phone Amadou Kaufman MD Primary Care Provider [phone] Allergies Active Allergy Reactions Criticality Noted Date Comments Other 10/05/2012 Seasonal allergies Penicillins Itching 10/11/2010 Medications baclofen (LIORESAL) 10 mg tablet TAKE 1 TABLET BY MOUTH AT BEDTIME NEEDED FOR SPASM 30 tablet 4 03/29/20 24 Active cloNIDine (CATAPRES) 0.1 mg tablet Take 1 Tablet by mouth 2 times daily. Active dapagliflozin propanediol (FARXIGA) 10 mg tablet Take 10 mg by mouth daily. 03/14/20 24 Active EPINEPHrine (EpiPen 2-Tomás) 0.3 mg/0.3 mL injection Inject 1 Device as directed as needed (anaphylaxis). Use as directed 02/15/20 23 Active fexofenadine (RICHARD) 180 mg tablet Take 1 Tablet by mouth at bedtime. 03/19/20 24 Active pen needle, diabetic 32 gauge x /32 needle Use one daily with insulin 03/06/20 24 Active lamoTRIgine (LaMICtal) 25 mg tablet Take 1 Tablet by mouth every morning. 02/13/20 24 Active multivitamin with minerals (MULTIPLE VITAMIN-MINERALS ORAL) Take 1 tablet by mouth daily. Active medical supply, miscellaneous (MISCELLANEOUS MEDICAL [facility]PPLY [facility] [place] SPACER DEVICE-ADULT use with inhaler 10/06/19 13 Active amLODIPine (NORVASC) 10 mg tablet Take 1 tablet (10 mg total) by mouth 1 (one) time each day. 90 tablet 06/19/19 25 Active cholecalciferol (VITAMIN D-3) 50 mcg (2,000 unit) tablet Take 1 tablet (2,000 Units total) by mouth 1 (one) time each day. 90 tablet 06/19/19 25 Active hydrOXYzine pamoate (VISTARIL) 25 mg capsule Take 1 capsule (25 mg total) by mouth 3 (three) times a day if needed for anxiety. Active metFORMIN (GLUCOPHAGE) 1,000 mg tablet Take 1 tablet (1,000 mg total) by mouth 2 (two) times a day. 180 tablet 06/19/19 25 Active gabapentin (NEURONTIN) 300 mg capsule Take 1 capsule (300 mg total) by mouth 4 (four) times a day. 120 capsule 06/19/19 25 Active lisinopriL (PRINIVIL,ZESTRIL ) 30 mg tablet Take 1 tablet (30 mg total) by mouth 1 (one) time each day. 90 each 06/19/19 25 026 Active doxycycline (VIBRAMYCIN) 100 mg capsule Take 1 capsule (100 mg total) by mouth 2 (two) times a day. Take with at least 8 ounces (large glass) of water, do not lie down for 30 minutes after 14 each 06/19/19 25 Active albuterol HFA (Ventolin HFA) 90 mcg/actuation inhaler Inhale 2 puffs by mouth every 4 (four) hours if needed for wheezing or shortness of breath. 6.7 g 3 06/19/19 25 Active fluticasone-umecl idinium-vilantero l (Trelegy Ellipta) 200-62.5-25 mcg inhaler Inhale 1 puff (200 mcg total) by mouth 1 (one) time each day. Rinse mouth with water after use to reduce aftertaste and incidence of candidiasis. Do not swallow. 1 each 3 06/19/19 25 Active OneTouch UltraSoft LancetsIndication s:Type 2 diabetes mellitus without complication, without long-term current use of insulin Use to check blood sugars once a day 100 each 3 08/15/19 25 Active blood-glucose meter kitIndications:Ty pe 2 diabetes mellitus without complication, without long-term current use of insulin Use this machine to test blood sugar once daily 1 each 08/15/19 25 Active FreeStyle Test test stripIndications: Type 2 diabetes mellitus without complication, without long-term current use of insulin Use to check blood sugars once a day 100 each 3 08/15/19 25 026 Active insulin degludec (Tresiba FlexTouch U-100) 100 unit/mL (3 mL) injection pen Inject 24 Units under the skin at bedtime. 15 mL 2 08/15/19 25 Active blood-glucose meter (BLOOD GLUCOSE MONITORING MISC) Use to test blood sugar once daily 02/24/20 23 025 Discontin ued(Reord er) OneTouch UltraSoft Lancets Use to test blood sugar once daily 03/31/20 23 025 Discontin ued(Reord er) insulin degludec (Tresiba FlexTouch U-100) 100 unit/mL (3 mL) injection pen Inject 40 Units under the skin at bedtime. 15 mL 2 06/19/19 25 025 Discontin ued(Reord er) Active Problems Problem Noted Date Diagnosed Date Pancreatitis, alcoholic, acute 04/04/2024 Primary hypertension 04/04/2024 Alcohol use disorder in remission 02/07/2024 Seasonal allergic rhinitis 08/14/2023 Osteoarthritis of cervical spine 05/29/2023 Alcohol use disorder 02/14/2023 Chronic midline low back pain without sciatica 0 08/12/2022 GERD (gastroesophageal reflux disease) 9 Elevated IgE level 01/08/2019 Obese 01/08/2019 Hyperlipidemia LDL goal <100 12/05/2018 Type 2 diabetes mellitus wit hout complication, without long-term current use of insulin 12/05/2018 Perennial allergic rhinitis 05/25/2017 Severe persistent asthma without complication Insomnia 03/05/2014 Chronic lumbar radiculopathy 05/31/2013 Asthma-COPD overlap syndrome 10/05/2012 Hepatic steatosis 10/11/2010 Encounters Date Type Department Care Team Description 08/14/2024 2:00 PM EDT Office Visit Endocrinology [address] [phone] Carmen Mann PA Type 2 diabetes mellitus without complication, without long-term current use of insulin ([facility]/HCC) (Primary Dx); Primary hypertension 06/19/2024 11:00 AM EST Office Visit Adult Medicine [address] [phone] Aamdou Kaufman MD COPD exacerbation (CMS/HCC) (Primary Dx); Poorly-controlled hypertension; Type 2 diabetes mellitus without complication, without long-term current use of insulin (CMS/HCC); Alcohol use disorder in remission; Anxiety and depression; Cigarette smoker; Chronic midline low back pain without sciatica; Routine eye exam; Screening for colorectal cancer from Last 3 Months Immunizations Name Administration Dates Next Due Influenza Quadravalent, MDCK , 0.5ml, preservative free (Flucelvax) 6mo and older 02/14/2023 Influenza trivalent, 0.5mL, preservative free (Fluarix; FluLaval; Fluzone) ages 6mo and older (Afluria) 3 years and older 04/23/2020,03/05/2013 Influenza trivalent, with pr eservative (Fluzone; Afluria) 6mo and older 02/03/2024 Influenza, Unspecified 04/04/2021,03/10/2015 MMR, measles mumps and rubel la Live (Priorix; M-M-R II) 12mo and older 03/05/2024 Pneumococcal polysaccharide 23 valent (Pneumovax 23) 2yo and older 08/25/2014 Tdap Tetanus diptheria acell ular pertussis (Boostrix; Adacel) 7yo and older 07/30/2012 Zoster recombinant (Shingrix) 19yo and older Surgical History Surgery Date Site/Laterality Comments HERNIA REPAIR 2007 PROCEDURE: REPAIR UMBILICAL HERNIA TONSILLECTOMY childhood PROCEDURE: HISTORICAL TONSILLECTOMY Medical History Medical History Date Comments Asthma DX:Asthma Pancreatitis, alcoholic, acute D X:Pancreatitis, alcoholic, acute HTN (hypertension), benign DX:HT N (hypertension), benign DM2 (diabetes mellitus, type 2) (CMS/HCC) DX:DM2 (diabetes mellitus, t ype 2) ([facility]) COPD (chronic obstructive pu lmonary disease) ([facility]/HCC) DX:COPD (chronic obstructive pulmonary disease) ([facility]) Anxiety and depression DX:Anxiet y and depression Neck pain DX:Neck pain Family History Medical History Relation Name Comments Alzheimer's disease Father 83 y/o Diabetes Mother Breast cancer Neg Hx Colon cancer Neg Hx Coronary artery disease Neg Hx Prostate cancer Neg Hx Relation Name Status Comments Brother Alive healthy Father Alive Alzheimer's Maternal Grandfather Maternal Grandmother Mother Alive mild dementia Paternal Grandfather Paternal Grandmother Sister 1 Alive healthy Sister 2 Alive healthy Son Alive age 32 (2014); healthy Social History Tobacco Use Types Packs/Day Years Used Date Smoking Tobacco: Former Cigarettes Q uit: 07/20/2012 Smokeless Tobacco: Never Tobacco Cessation:Counseling Given: Not Answered Alcohol Use Standard Drinks/Week Comments Not Currently 0 (1 standard drink = 0.6 oz pur e alcohol) Sex and Gender Information Value Date Recorded Sex Assigned at Not on file Legal Sex Male 7:40 PM EST Gender Identity Not on file Sexual Orientation Not on file Obstetrics History Last Filed Vital Signs Vital Sign Reading Time Taken Comments Blood Pressure 158/85 08/14/2024 2:06 PM EDT 5 m ins Pulse 96 08/14/2024 2:03 PM EDT Temperature 36.4 ??C (97.5 ??F) 08/14/2024 2:03 PM ED T Respiratory Rate 16 06/19/2024 11:06 AM EST Oxygen Saturation 94% 08/14/2024 2:03 PM EDT Inhaled Oxygen Concentration - - Weight 89.4 kg (197 lb) 08/14/2024 2:03 PM EDT Height 172.7 cm (5' 8 ) 08/14/2024 2:03 PM EDT Body Mass Index 29.95 08/14/2024 2:03 PM EDT Plan of Treatment Upcoming Encounters Date Type Department Care Team (Late st Contact Info) Description 10/17/2024 11:00 AM EDT Office Visit Adult Medicine [address] [phone] Amadou Kaufman MD [address] [place] [id number] 11/27/2024 10:45 AM EDT Office Visit Endocrinology - [id number] [place] [phone] Carmen Mann PA [address] [place] [address] Health Maintenance Due Date Last Done Comments Diabetes: Annual Foot Exam 1970 Diabetes: Annual Retina Eye Exam 1970 Hepatitis A Vaccines (1 of 2 - Risk 2-dose series) 12/20/1979 RSV Immunization Adult Patients (1 - Risk 60-74 years 1-dose series) 2020 Colorectal Cancer Screening: Stool Based Tests (FOBT/FIT) 04/30/2022 Depression Screening 04/30/2022 HIV Screening 04/30/2022 Medicare Annual Wellness Visit 04/30/2022 Social Influencers of Health Screening 04/30/2022 DTaP,Tdap,and Td Vaccines (3 - Td or Tdap) 07/30/2022 07/30/2012, 07/09/2011 Diabetes: Annual Urine Albumin-Creatinine Ratio (uACR) 05/29/2024 05/29/2023 Diabetes: Blood Sugar Control Test (HGBA1C) 06/12/2024 12/11/2023, 12/11/2023 Diabetes: Annual GFR (Glomerular Filtration Rate) 12/10/2024 12/11/2023, 12/11/2023 Hypertension/CHF/CAD Annual BMP Blood Test 12/10/2024 12/11/2023, 12/11/2023 Cholesterol Screening (Lipid Panel) 02/17/2028 02/16/2023 Hepatitis C Screening Completed 04/17/2013 COVID-19 Vaccine Completed 02/03/2024, , 09/13/2021, Additional history exists Influenza Vaccine Completed 02/03/2024, , 04/12/2022, Additional history exists MMR Vaccines Aged Out 03/05/2024 No longer eligi ble based on patient's age to complete this topic Pneumococcal Vaccine: 50+ Years Completed 04/24/2024, 08/25/2014 Pneumococcal Vaccine: Pediatrics (0 to 5 Years) and At-Risk Patients (6 to 64 Years) Completed 04/24/2024, 08/25/2014 Zoster Vaccines Completed 04/24/2024, 02/03/2024 HIB Vaccines Aged Out No longer eligi ble based on patient's age to complete this topic HPV Vaccines Aged Out No longer eligi ble based on patient's age to complete this topic Hepatitis B Vaccines Aged Out No long er eligible based on patient's age to complete this topic IPV Vaccines Aged Out No longer eligi ble based on patient's age to complete this topic Meningococcal ACWY Vaccine Aged Out N o longer eligible based on patient's age to complete this topic Meningococcal B Vacine Aged Out No lo nger eligible based on patient's age to complete this topic RSV Immunization Patients Under 20 months Aged Out No longer eligible based on patient's age to complete this topic Varicella Vaccines Aged Out No longer eligible based on patient's age to complete this topic Procedures Procedure Name Priority Date/Time Associated Diagnosis Comments POC GLUCOSE Routine 08/14/2024 2:09 PM EDT Type 2 diabetes mellitus without complication, without long-term current use of insulin ([facility]) ANNUAL BMP BLOOD TEST Routine 12/11/2023 HEMOGLOBIN A1C Routine 12/11/2023 URINE ALBUMIN CREATININE RATIO Routine 05/29/2023 LIPID PANEL Routine 02/16/2023 HEPATITIS C SCREENING Routine 04/17/2013 from Last 3 Months or Most Recently Relevant to Health Maintenance Results * POC glucose manually resulted (08/14/2024 2:09 PM EDT) Glucose POC 110 mg/dL Comment:FSBS Blood Capillary blood specimen / Unknown 08/14/2024 2:09 PM EDT us Carmen CHEN POINT OF CARE TEST ENTER/ED IT ORDERABLES Final Result * Annual BMP Blood Test (12/11/2023) [facility] Annual BMP Blood Test abstracted Result [facility] Provider HEALTH MAINTENANCE Final Result * (ABNORMAL) Hemoglobin A1c (12/11/2023) [facility] Hemoglobin A1C 10.6(A) <=6.5 % Blood Venous blood specimen / Unknown Result [facility] Provider LAB BLOOD ORDERABLES Carrie l Result * Urine Albumin Creatinine Ratio (05/29/2023) [facility] Urine Albumin Creatinine Ratio abstracted Result [facility] Provider HEALTH MAINTENANCE Final Result * Lipid panel (02/16/2023) [facility] LDL/HDL Ratio 3 0 - 4 Triglycerides 68 0 - 150 mg/dL Cholesterol 132 0 - 200 mg/dL HDL 41 >=40 mg/dL LDL Cholesterol 78 0 - 100 mg/dL Blood Venous blood specimen / Unknown Result [facility] Provider LAB BLOOD ORDERABLES Carrie l Result * Hepatitis C Screening (04/17/2013) [facility] Hepatitis C Screening abstracted Result [facility] Provider HEALTH MAINTENANCE Final Result from Last 3 Months or Most Recently Relevant to Health Maintenance Insurance [facility] MEDIC[facility] Member Subscriber Plan / Payer (Ef fective 2024-Present) Name:Hernan Mcguire Relation to Subscriber:Self Name:Hernan Mcguire Payer ID:[id number] Group ID:[id number] Type:Not on file Address: [place] [address] [address] [id number] Care Teams Rigging Slinger Relationship Specialty Start Date End Date Amadou Kaufman MD [address] [place] [address] PCP - General Internal Medicine 12/23/21
== END 2024-08-23 14:18 | disposition home or self-care (01) ==
LOC: CF 14:17
DX: Z13.89 Encounter for screening for other disorder (principal)

== ENCOUNTER 2024-09-07 10:44 | Outpatient (REF) | payer OTHER, SELFPAY ==
--- NOTE | ~2024-09-07 | MR_ITS ---
EXAMINATION: MR CERVICAL SPINE WITHOUT CONTRAST CLINICAL INFORMATION: Paresthesia of skin. Neck pain radiating to the right upper extremity. COMPARISON: None available. TECHNIQUE: MRI of the cervical spine was obtained using routine sequences without contrast. FINDINGS: Craniocervical junction is intact. No bone marrow STIR signal abnormality. Normal alignment. Multilevel disc desiccation, C3 C7. Buckling deformity of the dorsal aspect of the thecal sac at C3-4, C4-5, C5-6 and T1-T2 levels likely related to ligamentum flavum hypertrophy. The cervical spinal cord signal is normal. C2-3: Left-sided the disc osteophyte complex formation. No cord compression. Left neuroforamina narrowing on a degenerative basis. C3-4: Broad-based disc osteophyte compresses formation. Facet joint and ligamentum flavum hypertrophy. CSF effacement of the thecal sac abutting the cord. No cord signal abnormality. Bilateral neuroforamina narrowing on a degenerative basis. C4-5: Broad-based disc osteophyte compresses formation. Facet joint and ligamentum flavum hypertrophy. CSF effacement of the thecal sac. No cord signal abnormality. Bilateral neuroforamina narrowing on a degenerative basis. C5-6: Broad-based disc osteophyte compresses formation. No cord compression. Bilateral neuroforamina narrowing on a degenerative basis. C5-6: Right based disc osteophyte compresses formation. No cord compression. Bilateral neuroforamina narrowing on a degenerative basis. C6-7: Right base disc osteophyte compresses formation. No cord compression. Bilateral, left greater than right neuroforamina narrowing on a degenerative basis. C7-T1: Right-sided disc osteophyte consummation. No cord compression. Right neuroforamina narrowing on a degenerative basis. T1-2: Left facet joint hypertrophy as well as ligamentum flavum resulting in ventral deformity of the thecal sac and the left dorsal aspect of the spinal cord. No cord signal abnormality. No neuroforamina stenosis. Flow-void signal within the main vessels is normal. Left vertebral artery is dominant. No prevertebral compartment hematoma, mass or fluid collection. MR/MR cervical spine wo con IMPRESSION: Central spinal canal stenosis without cord compression, cord edema and or myelopathy on a multifactorial basis at C3-4 and C4-5 levels. Left facet joint hypertrophy and ligamentum flavum resulting and dorsal deformity of the thecal sac and spinal cord at T1-2 without cord edema and or myelopathy. Multilevel neuroforamina narrowing on a degenerative basis, C3-4, C4-5 C5-6 and C7-T1. Electronically signed by: Michele White MD 09/10/2024 10:23 AM EDT
--- OUTSIDE RECORDS SUMMARY | 2024-09-07 10:47 | XMS_ITS | Clinical Summary ---
Author Organization [facility] Address [address] [place] [address] Care Team Providers Care Batteryman Name Role Phone Flor Coffey MD Primary Care Provider [phone] Allergies No known active allergies Medications Medication [...] age to complete this topic Care Teams Batteryman Relationship Specialty Start Date End Date Flor Coffey MD PCP - General Internal Medicine 09/29/21
== END 2024-09-07 10:45 | disposition home or self-care (01) ==
LOC: HO.MRI 10:44
PROVIDERS: PCP Internal Medicine; Visit Provider Registered Nurse Emergency
DX: R20.2 Paresthesia of skin (principal); M54.12 Radiculopathy, cervical region; M47.812 Spondylosis without myelopathy or radiculopathy, cervical region; M54.2 Cervicalgia; G89.29 Other chronic pain
CPT/HCPCS: 72141

== ENCOUNTER → 2024-09-07 10:51 | Outpatient (BNV) | payer OTHER, SELFPAY | PROVIDERS: PCP Internal Medicine; Visit Provider Radiology Diagnostic Radiology | DX: M54.2 Cervicalgia (principal) | CPT/HCPCS: 72141 ==

== ENCOUNTER 2024-09-18 12:59 | Outpatient (REF) | payer OTHER, SELFPAY ==
--- NOTE | 2024-09-18 13:02 | EMG_ITS ---
Chief complaint: Neck pain, but paresthesias on both sides Reason for referral: Evaluate for Carpal Tunnel Syndrome versus radiculopathy Referred by: Referred for right arm, patient requested nerve conduction to be done on both sides Procedure done: Luiza Rondon NP Precautions and/or limitations: None The limb temperature was monitored continuously and remained between 32-36 degrees C during the performance of the NCS. Nerve Conduction Studies Anti Sensory Summary Table ?Stim Site NR Onset (ms) Norm Onset (ms) Peak (ms) Norm Peak (ms) O-P Amp (?V) Norm O-P Amp Site1 Site2 Delta-0 (ms) Dist (cm) Jorge L (m/s) Norm Jorge L (m/s) Left Median Anti Sensory (2nd Digit) Wrist ? 3.8 4.7 <3.6 9.5 >10 Wrist 2nd Digit 3.8 14.0 37 Right Median Anti Sensory (2nd Digit) Wrist ? 3.6 4.3 <3.6 8.4 >10 Wrist 2nd Digit 3.6 14.0 39 Right Radial Anti Sensory (Thumb) Forearm ? 1.9 2.4 <3.1 16.9 Forearm Thumb 1.9 0.0 Left Ulnar Anti Sensory (5th Digit) Wrist ? 2.6 3.6 <3.7 9.4 >15.0 Wrist 5th Digit 2.6 14.0 54 Right Ulnar Anti Sensory (5th Digit) Wrist ? 2.6 3.7 <3.7 10.9 >15.0 Wrist 5th Digit 2.6 14.0 54 Motor Summary Table ?Stim Site NR Onset (ms) Norm Onset (ms) O-P Amp (mV) Norm O-P Amp iAmp (mV) Amp (1st) (%) Site1 Site2 Delta-0 (ms) Dist (cm) Jorge L (m/s) Norm Jorge L (m/s) Left Median Motor (Abd Poll Brev) Wrist ? 4.8 <3.9 12.3 >4.5 13.5 100.0 Elbow Wrist 4.3 22.0 51 >45 Elbow ? 9.1 10.8 12.1 87.8 Right Median Motor (Abd Poll Brev) Wrist ? 4.4 <3.9 11.1 >4.5 12.3 100.0 Elbow Wrist 4.4 23.0 52 >45 Elbow ? 8.8 10.3 11.5 92.8 Left Ulnar Motor (Abd Dig Minimi) Wrist ? 3.0 <3.0 7.0 >5 8.7 100.0 B Elbow Wrist 3.9 19.0 49 >45 B Elbow ? 6.9 7.7 9.2 110.0 A Elbow B Elbow 2.2 10.0 45 >45 A Elbow ? 9.1 6.0 7.5 85.7 Right Ulnar Motor (Abd Dig Minimi) Wrist ? 3.0 <3.0 10.5 >5 12.5 100.0 B Elbow Wrist 4.0 20.0 50 >45 B Elbow ? 7.0 10.5 12.3 100.0 A Elbow B Elbow 2.0 10.0 50 >45 A Elbow ? 9.0 9.9 12.4 94.3 EMG ?Side Muscle Nerve Root Ins Act Fibs Psw Amp Dur Poly Recrt Int Pat Comment Right 1stDorInt Ulnar C8-T1 Nml Nml Nml Nml Nml 0 Nml Complete Right FlexCarRad Median C6-7 Nml Nml Nml Nml Nml 0 Nml Complete Right Biceps Musculocut C5-6 Nml Nml Nml Nml Nml 0 Nml Complete Right Triceps Radial C6-7-8 Nml Nml Nml Nml Nml 0 Nml Complete Right Deltoid Axillary C5-6 Nml Nml Nml Nml Nml 0 Nml Complete Paraspinal EMG ?Side Muscle Nerve Root Ins Act Fibs Psw Comment Right Cervical Upper Rami Nml Nml Nml Right Cervical Mid Rami Nml Nml Nml Right Cervical Lower Rami Nml Nml Nml FINDINGS: Bilateral median motor nerves showed prolonged distal latency, normal amplitude and normal conduction velocity. Bilateral median sensory nerves showed prolonged peak latency. All other nerves tested were within normal. Concentric needle EMG was performed in selected muscles of the right upper extremity and cervical paraspinals. Study did not reveal signs of electric abnormalities as shown in the table above. IMPRESSION: 1. This is an abnormal study. 2. There is electrodiagnostic evidence for bilateral moderate-severe median neuropathy at the wrist, consistent with carpal tunnel syndrome. 3. There is no electrodiagnostic evidence for ulnar neuropathy 4. There is no electrodiagnostic evidence for brachial plexopathy, or cervical radiculopathy on the right side. Thank you for your kind referral. Zhanna Tracey MD, KIERSTEN Board Certified, [place] [employer] and [employer] (ABPMR) Board Certified, [place] Board of Electrodiagnostic [employer] (ABEM) CODIN [phone] x 2 MTDD
--- OUTSIDE RECORDS SUMMARY | 2024-09-18 14:16 | XMS_ITS | Clinical Summary ---
Author Organization [address] Address [address] [place] [address] [place] [address] Phone Care Team Providers Care Nut Former Name Role Phone Amadou Kaufman MD Primary Care Provider Allergies Active Allergy Reactions Criticality Noted Date [...] Inject 1 Device as directed as needed (anaphylaxis) . Use as directed 02/15/20 23 Active fexofenadine [...] Active medical supply, miscellaneous (MISCELLANEOUS MEDICAL SUPPLY [facility]) SPACER DEVICE-ADULT use with inhaler 10/06/19 13 Active amLODIPine (NORVASC) 10 mg tablet Take 1 tablet (10 mg total) by mouth 1 (one) time each day. 90 tablet 1 06/19/19 25 Active cholecalciferol (VITAMIN D-3) 50 mcg (2,000 unit) tablet Take 1 tablet (2,000 Units total) by mouth 1 (one) time each day. 90 tablet 1 06/19/19 25 Active hydrOXYzine pamoate (VISTARIL) 25 mg capsule Take 1 capsule (25 mg total) by mouth 3 (three) times a day if needed for anxiety. Active metFORMIN (GLUCOPHAGE) 1,000 mg tablet Take 1 tablet (1,000 mg total) by mouth 2 (two) times a day. 180 tablet 1 06/19/19 25 Active gabapentin (NEURONTIN) 300 mg capsule Take 1 capsule (300 mg total) by mouth 4 (four) times a day. 120 capsule 3 06/19/19 25 Active lisinopriL (PRINIVIL,ZESTRI L) 30 mg tablet Take 1 tablet (30 mg total) by mouth 1 (one) time each day. 90 each 06/19/19 25 026 Active doxycycline (VIBRAMYCIN) 100 mg capsule Take 1 capsule (100 mg total) by mouth 2 (two) times a day. Take with at least 8 ounces (large glass) of water, do not lie down for 30 minutes after 14 each 06/19/19 25 Active fluticasone-umec lidinium-vilante rol (Trelegy Ellipta) 200-62.5-25 mcg inhaler Inhale 1 puff (200 mcg total) by mouth 1 (one) time each day. Rinse mouth with water after use to reduce aftertaste and incidence of candidiasis. Do not swallow. 1 each 06/19/19 25 Active OneTouch UltraSoft LancetsIndicatio ns:Type 2 diabetes mellitus without complication, without long-term current use of insulin ([facility] V24, [facility] V28) Use to check blood sugars once a day 100 each 08/15/19 25 Active blood-glucose meter kitIndications:T ype 2 diabetes mellitus without complication, without long-term current use of insulin ([facility] V24, [facility] V28) Use this machine to test blood sugar once daily 1 each 08/15/19 25 Active FreeStyle Test test stripIndications :Type 2 diabetes mellitus without complication, without long-term current use of insulin ([facility] V24, [facility] V28) Use to check blood sugars once a day 100 each 3 08/15/19 25 026 Active insulin degludec (Tresiba FlexTouch U-100) 100 unit/mL (3 mL) injection pen Inject 24 Units under the skin at bedtime. 15 mL 2 08/15/19 25 Active Ventolin HFA 90 mcg/actuation inhaler INHALE 2 PUFFS BY MOUTH EVERY 4 HOURS NEEDED FOR COUGH OR WHEEZING 18 g 2 09/17/19 25 Active albuterol HFA (Ventolin HFA) 90 mcg/actuation inhaler Inhale 2 puffs by mouth every 4 (four) hours if needed for wheezing or shortness of breath. 6.7 g 3 06/19/19 25 025 Discontinued Active Problems Problem Noted Date Diagnosed Date [...] complication, without long-term current use of insulin ([facility] V24, [facility] V28) 12/05/2018 Perennial allergic rhinitis 05/25/2017 Severe persistent asthma without complication ([facility] V28) 05/25/2017 Insomnia 03/05/2014 Chronic lumbar radiculopathy 05/31/2013 Asthma-COPD overlap syndrome ([facility] V24, [facility] V28) 10/05/2012 Hepatic steatosis 10/11/2010 Encounters Date Type Department Care Team Description 08/14/2024 2:00 PM EDT Office Visit Endocrinology [address] [phone] Carmen Mann PA Type 2 diabetes mellitus without complication, without long-term current use of insulin ([facility]) (Primary Dx); Primary hypertension from Last 3 Months Immunizations Name Administration [...] (hypertension), benign DM2 (diabetes mellitus, type 2) ([facility] V24, [facility] V28) DX:DM2 (diabetes mellitus, t ype 2) ([facility]) COPD (chronic obstructive pu lmonary disease) ([facility] V24, [facility] V28) DX:COPD (chronic o bstructive pulmonary disease) ([facility]) Anxiety and depression DX:Anxiet y and depression [...] 2 Alive healthy Son Alive age 32 (2015); healthy Social History Tobacco Use Types Packs/Day [...] 11:00 AM EDT Office Visit Adult Medicine [address] [phone] Amadou Kaufman MD [address] [place] [address] 11/27/2024 10:45 AM EDT Office Visit Endocrinology [address] [phone] Carmen Mann PA [address] [place] [address] Health Maintenance Due Date Last Done Comments [...] age to complete this topic Meningococcal B Vaccine Aged Out No l onger eligible based on patient's age to complete this topic RSV Immunization Patients Under 20 months Aged Out No longer eligible based on patient's age to complete this topic Varicella Vaccines Aged Out No longer eligible based on patient's age to complete this topic Procedures Procedure Name Priority Date/Time Associated Diagnosis Comments EXTERNAL MRI REPORT 09/07/2024 EXTERNAL MRI REPORT 09/07/2024 POC GLUCOSE Routine 08/14/2024 2:09 PM EDT Type 2 diabetes mellitus without complication, without long-term current use of insulin ([facility]) ANNUAL BMP BLOOD TEST Routine 12/11/2023 HEMOGLOBIN A1C Routine 12/11/2023 URINE ALBUMIN CREATININE RATIO Routine 05/29/2023 LIPID PANEL Routine 02/16/2023 HEPATITIS C SCREENING Routine 04/17/2013 from Last 3 Months or Most Recently Relevant to Health Maintenance Results * External MRI Report (09/07/2024) Only the most recent of2 resultswithin the time period is included. Anatomical Region Laterality Modality Magnetic Resonan ce Provider [facility] MRI PROCEDURES Final Result * POC glucose manually resulted (08/14/2024 2:09 PM EDT) Glucose POC 110 mg/dL Comment:FSBS Blood Capillary blood specimen / Unknown 08/14/2024 2:09 PM EDT us Carmen CHEN POINT OF CARE TEST ENTER/ED IT ORDERABLES Final Result * Annual BMP Blood Test (12/11/2023) Annual BMP Blood Test abstracted Historical Provider HEALTH MAINTENANCE Final Result * (ABNORMAL) Hemoglobin A1c (12/11/2023) Pathologist [facility] Hemoglobin A1C 10.6(A) <=6.5 % Blood Venous blood specimen / Unknown Result [facility] Provider LAB BLOOD ORDERABLES Carrie l Result * Urine Albumin Creatinine Ratio (05/29/2023) Pathologist [facility] Urine Albumin Creatinine Ratio abstracted Result [facility] Provider HEALTH MAINTENANCE Final Result * Lipid panel (02/16/2023) Pathologist [facility] LDL/HDL Ratio 3 0 - 4 Triglycerides 68 0 - 150 mg/dL Cholesterol 132 0 - 200 mg/dL HDL 41 >=40 mg/dL LDL Cholesterol 78 0 - 100 mg/dL Blood Venous blood specimen / Unknown Result [facility] Provider LAB BLOOD ORDERABLES Carrie l Result * Hepatitis C Screening (04/17/2013) Pathologist [facility] Hepatitis C Screening abstracted Result [facility] Provider HEALTH MAINTENANCE Final Result from Last 3 Months or Most Recently Relevant to Health Maintenance Insurance [facility] MEDICARE Member Subscriber Plan / Payer (Ef fective 2024-Present) Name:Hernan Mcguire Relation to Subscriber:Self Name:Hernan Mcguire Payer ID:[id number] Group ID:[id number] Type:Not on file Address: [place] [address] [address] [id number] Care Teams Nut Former Relationship Specialty Start Date End Date Amadou Kaufman MD [address] [place] [address] TAYO MILLS PCP - General Internal Medicine 12/23/21
--- OUTSIDE RECORDS SUMMARY | 2024-09-18 14:16 | XMS_ITS | Clinical Summary ---
Author Organization [facility] Address [address] [place] [address] Care Team Providers Care Pot Reliner Name Role Phone Flor Coffey MD Primary Care Provider [phone] Allergies No known active allergies Medications Medication [...] age to complete this topic Care Teams Pot Reliner Relationship Specialty Start Date End Date Flor Coffey MD PCP - General Internal Medicine 09/29/21
== END 2024-09-18 13:00 | disposition home or self-care (01) ==
LOC: HO.NEURO 12:59
PROVIDERS: PCP Internal Medicine; Visit Provider Registered Nurse Emergency
DX: R20.2 Paresthesia of skin (principal); R94.131 Abnormal electromyogram [EMG]
CPT/HCPCS: 95886; 95911

== ENCOUNTER → 2024-09-18 13:02 | Outpatient (BNV) | payer OTHER, SELFPAY | PROVIDERS: PCP Internal Medicine; Visit Provider Physical Medicine & Rehabilitation | DX: G56.03 Carpal tunnel syndrome, bilateral upper limbs (principal) | CPT/HCPCS: 95886; 95911 ==

== ENCOUNTER 2024-10-04 13:14 | Outpatient (AMB) | payer OTHER, SELFPAY ==
--- OUTSIDE RECORDS SUMMARY | 2024-10-04 13:16 | XMS_ITS | Clinical Summary ---
Author Organization [facility] Address [address] [place] [address] Care Team Providers Care Control Operator Flow Coat Name Role Phone Flor Coffey MD Primary Care Provider [phone] Allergies No known active allergies Medications Medication [...] age to complete this topic Care Teams Control Operator Flow Coat Relationship Specialty Start Date End Date Flor Coffey MD PCP - General Internal Medicine 09/29/21
--- OUTSIDE RECORDS SUMMARY | 2024-10-04 13:16 | XMS_ITS | Clinical Summary ---
Author Organization [address] Address [address] [place] [address] [place] [address] Phone Care Team Providers Care Communications Maintainer Name Role Phone Amadou Kaufman MD Primary Care Provider Allergies Active Allergy Reactions Criticality Noted Date Comments Other 10/05/2012 Seasonal allergies Penicillins Itching 10/11/2010 Medications baclofen (LIORESAL) 10 mg tablet TAKE 1 TABLET BY MOUTH AT BEDTIME NEEDED FOR SPASM 30 tablet 4 03/29/20 24 Active cloNIDine (CATAPRES) 0.1 mg tablet Take 1 Tablet by mouth 2 times daily. Active EPINEPHrine (EpiPen 2-Tomás) 0.3 mg/0.3 mL injection Inject 1 Device as directed as needed (anaphylaxis) . Use as directed 02/15/20 23 Active fexofenadine (RICHARD) 180 mg tablet Take 1 Tablet by mouth at bedtime. 03/19/20 24 Active pen needle, diabetic 32 gauge x 32 needle Use one daily with insulin 03/06/20 24 Active lamoTRIgine (LaMICtal) 25 mg tablet Take 1 Tablet by mouth every morning. 02/13/20 24 Active multivitamin with minerals (MULTIPLE VITAMIN-MINERALS ORAL) Take 1 tablet by mouth daily. Active medical supply, miscellaneous (MISCELLANEOUS MEDICAL SUPPLY [facility]) SPACER DEVICE-ADULT use with inhaler 10/06/19 13 [...] time each day. 90 each 06/19/19 25 2025 Active doxycycline (VIBRAMYCIN) 100 mg capsule Take [...] complication, without long-term current use of insulin ([facility] V24, [facility] V28) Use to check blood sugars once a day 100 each 08/15/19 25 Active blood-glucose meter kitIndications:T ype 2 diabetes mellitus without complication, without long-term current use of insulin ([facility] V24, [facility] V28) Use this machine to test blood sugar once daily 1 each 08/15/19 25 Active FreeStyle Test test stripIndications :Type 2 diabetes mellitus without complication, without long-term current use of insulin ([facility] V24, [facility] V28) Use to check blood sugars once a day 100 each 3 08/15/19 25 2025 Active insulin degludec (Tresiba FlexTouch U-100) 100 unit/mL (3 mL) injection pen Inject 24 Units under the skin at bedtime. 15 mL 2 08/15/19 25 Active Ventolin HFA 90 mcg/actuation inhaler INHALE 2 PUFFS BY MOUTH EVERY 4 HOURS NEEDED FOR COUGH OR WHEEZING 18 g 2 09/17/19 25 Active dapagliflozin propanediol (FARXIGA) 10 mg tablet Take 1 tablet (10 mg total) by mouth 1 (one) time each day. 30 tablet 6 09/21/19 25 Active dapagliflozin propanediol (FARXIGA) 10 mg tablet Take 10 mg by mouth daily. 03/14/20 24 2024 Discontinued(R eorder) albuterol HFA (Ventolin HFA) 90 mcg/actuation inhaler Inhale 2 puffs by mouth every 4 (four) hours if needed for wheezing or shortness of breath. 6.7 g 3 06/19/19 25 2024 Discontinued Active Problems Problem Noted Date Diagnosed [...] complication, without long-term current use of insulin ([facility] V24[facility] V28) 12/05/2018 Perennial allergic rhinitis 05/25/2017 Severe persistent asthma without complication ([facility] V28) 05/25/2017 Insomnia 03/05/2014 Chronic lumbar radiculopathy 05/31/2013 Asthma-COPD overlap syndrome ([facility] V24, [facility] V28) 10/05/2012 Hepatic steatosis 10/11/2010 Encounters Date Type Department Care Team Description 08/14/2024 2:00 PM EDT Office Visit [address] [phone] Carmen Mann PA Type 2 diabetes mellitus without complication, without long-term current use of insulin ([facility]) (Primary Dx); Primary hypertension from Last 3 [...] (hypertension), benign DM2 (diabetes mellitus, type 2) ([facility] V24, [facility] V28) DX:DM2 (diabetes mellitus, t ype 2) ([facility]) COPD (chronic obstructive pu lmonary disease) ([facility] V24, [facility] V28) DX:COPD (chronic o bstructive pulmonary disease) ([facility]) Anxiety and depression DX:Anxiet y and depression [...] 11:00 AM EDT Office Visit Adult Medicine [address] [phone] Amadou Kaufman MD [address] [place] [address] 11/27/2024 10:45 AM EDT Office Visit [address] [phone] Carmen Mann PA [address] [place] [address] Health Maintenance Due Date Last Done Comments [...] complication, without long-term current use of insulin ([facility]) ANNUAL BMP BLOOD TEST Routine 12/11/2023 HEMOGLOBIN A1C Routine 12/11/2023 URINE ALBUMIN CREATININE RATIO Routine 05/29/2023 LIPID PANEL Routine 02/16/2023 HEPATITIS C SCREENING Routine 04/17/2013 from Last 3 Months or Most Recently Relevant to Health Maintenance Results * External MRI Report (09/07/2024) Only the most recent of2 resultswithin the time period is included. Anatomical Region Laterality Modality Magnetic Resonan ce us Provider [facility] MRI PROCEDURES Final Result * POC glucose manually resulted (08/14/2024 2:09 PM EDT) Glucose POC 110 mg/dL Comment:FSBS Blood Capillary blood specimen / Unknown 08/14/2024 2:09 PM EDT Carmen CHEN POINT OF CARE TEST ENTER/ED IT ORDERABLES Final Result * Annual BMP Blood Test (12/11/2023) Pathologist [facility] Annual BMP Blood Test abstracted Result [facility] Provider HEALTH MAINTENANCE Final Result * (ABNORMAL) Hemoglobin A1c (12/11/2023) [facility] Hemoglobin A1C 10.6(A) <=6.5 % Blood Venous blood specimen / Unknown Result [facility] Provider LAB BLOOD ORDERABLES Carrie l Result * Urine Albumin Creatinine Ratio (05/29/2023) [facility] Urine Albumin Creatinine Ratio abstracted Result [facility] Provider HEALTH MAINTENANCE Final Result * Lipid panel (02/16/2023) [facility] LDL/HDL Ratio 3 0 - 4 Triglycerides 68 0 - 150 mg/dL Cholesterol 132 0 - 200 mg/dL HDL 41 >=40 mg/dL LDL Cholesterol 78 0 - 100 mg/dL Blood Venous blood specimen / Unknown Result [facility] Provider LAB BLOOD ORDERABLES Carrie l Result * Hepatitis C Screening (04/17/2013) [facility] Hepatitis C Screening abstracted Result [facility] Provider HEALTH MAINTENANCE Final Result from Last 3 Months or Most Recently Relevant to Health Maintenance Insurance [employer] MEDICARE Member Subscriber Plan / Payer (Ef fective 2024-Present) Name:GERRY KAMINSKI Relation to Subscriber:Self Name:Gerry Kaminski Payer ID:[id number] Group ID:[id number] Type:Not on file Address: [place] [address] [address] [phone] Care Teams Communications Maintainer Relationship Specialty Start Date End Date Amadou Kaufman MD [address] [place] [address] [place] PCP - General Internal Medicine 12/23/21
--- NOTE | 2024-10-04 13:29 | A.OFFVIS_ITS ---
Vital Signs 10/04/24 13:32 Height 5 ft 8 in Weight 198 lb BMI 30.1 BP 128/76 Blood Pressure Location Rt brachial Position Sitting Pulse 85 Pulse Source Pulse Oximeter Pulse Oximetry (%) 99 Oxygen Delivery Method Room Air Intake Visit Reasons: FU after MRI and EMG Intake Note: Pain today 11/28 Public Service Director Required: No Accompanied by: Self / Same As Patient Allergies Penicillins Allergy (Mild, Verified 08/16/24 14:20) ITCHING HPI Comments Details: The patient is a 63-year-old male presenting for follow up, review of recent MRI/EMG. Despite experiencing muscle weakness and reduced staff psychiatrist strength at times, he does not feel overly concerned, as the condition does not greatly disrupt his life. His diabetes management issue is also noted, with recent lab values indicating an elevated HbA1c level of 10. Diabetes treatment adjustments are underway. Concurrently, cervical spine pain has progressed due to arthritis, bone spurs, and narrowing, primarily affecting the upper cervical region and extending to the lower skull, causing headaches and stiffness. Baclofen provides significant relief, which is crucial given the limitations of other analgesics due to diabetes. Ongoing comprehensive management of all these conditions is evident, with an emphasis on preventing complications from poorly controlled diabetes, given its impact on overall management and procedural eligibility. Physical therapy was attempted but resulted in increased discomfort. - Onset and Timing: Recurrent, no specific onset period stated for cervical or arm pain. - Quality and Character: Nerve-related pain in arm due to carpal tunnel; cervi ap pain with stiffness, headaches. - Primary Location: Right arm and upper cervical spine. - Radiation: From cervical region to lower skull causing headaches. - Exacerbating Factors: Unspecified daily activities. - Relieving Factors: Baclofen provides relief. - Interference with Activities: Occasional muscle weakness; staff psychiatrist loss affecting daily comfort. - Affect: Patient experiences occasional discomfort and uncertainty about pain's impact on lifestyle, managing ongoing diabetes-related frustrations. - Analgesia: Baclofen used for relief. - Adverse Effects: None specifically noted with current Baclofen use. - Activities of Daily Living: Pain levels do not severely hinder routine - Aberrant Drug Related Behaviors: None reported. [facility] Medical History (Reviewed 10/04/24 @ 13:54 by Luiza Rondon, ACADEMIC [employer] DEAN, ASSOCIATE PROFESSOR OF SURGERY) HTN (hypertension) Pancreatitis, alcoholic, acute Alcohol use Hepatic steatosis Anxiety and depression Chronic obstructive pulmonary disease, unspecified Chronic lumbar radiculopathy Insomnia, unspecified House dust mite allergy Perennial non-allergic rhinitis Former smoker Severe persistent asthma, uncomplicated Hyperlipidemia, unspecified Type 2 diabetes mellitus without complications Elevated IgE level Asthma Obesity, unspecified Gastro-esophageal reflux disease without esophagitis Chronic midline low back pain without sciatica Chronic pain Alcohol use disorder Neck pain Social History (Reviewed 10/04/24 @ 13:54 by Luiza Rondon, ACADEMIC AFFAIRS DEAN, ASSOCIATE PROFESSOR OF SURGERY) Alcohol intake: current Alcohol intake frequency: 3 or more drinks per day Alcohol type: beer and hard liquor Patient Tobacco Use Status: Former Tobacco user Substance Use Type: Crack/Cocaine Review of Systems Const Details: - Musculoskeletal: Reports cervical pain, arm discomfort, muscle weakness; no reports of extensive functional limitations. - Endocrine: Reports diabetes management difficulties, monitoring by continuous glucose devices. - Neurological: Reports headaches from cervical pain. - General: Denies other systemic complaints beyond musculoskeletal and endocrine focus. Physical Exam Vital Signs: Last Vital Signs Pulse 85 10/04/24 13:32 BP 128/76 10/04/24 13:32 Pulse Ox 99 10/04/24 13:32 Oxygen Delivery Method Room Air 10/04/24 13:32 BMI result Body Mass Index 30.1 Results Reviewed Results Reviewed: 09/18/24 EMG IMPRESSION: 1. This is an abnormal study. 2. There is electrodiagnostic evidence for bilateral moderate-severe median neuropathy at the wrist, consistent with carpal tunnel syndrome. 3. There is no electrodiagnostic evidence for ulnar neuropathy 4. There is no electrodiagnostic evidence for brachial plexopathy, or cervical radiculopathy on the right side. 09/07/24 MRI CS FINDINGS: Craniocervical junction is intact. No bone marrow STIR signal abnormality. Normal alignment. Multilevel disc desiccation, C3 C7. Buckling deformity of the dorsal aspect of the thecal sac at C3-4, C4-5, C5-6 and T1-T2 levels likely related to ligamentum flavum hypertrophy. The cervical spinal cord signal is normal. C2-3: Left-sided the disc osteophyte complex formation. No cord compression. Left neuroforamina narrowing on a degenerative basis. C3-4: Broad-based disc osteophyte compresses formation. Facet joint and ligamentum flavum hypertrophy. CSF effacement of the thecal sac abutting the cord. No cord signal abnormality. Bilateral neuroforamina narrowing on a degenerative basis. C4-5: Broad-based disc osteophyte compresses formation. Facet joint and ligamentum flavum hypertrophy. CSF effacement of the thecal sac. No cord signal abnormality. Bilateral neuroforamina narrowing on a degenerative basis. C5-6: Broad-based disc osteophyte compresses formation. No cord compression. Bilateral neuroforamina narrowing on a degenerative basis. C5-6: Right based disc osteophyte compresses formation. No cord compression. Bilateral neuroforamina narrowing on a degenerative basis. C6-7: Right base disc osteophyte compresses formation. No cord compression. Bilateral, left greater than right neuroforamina narrowing on a degenerative basis. C7-T1: Right-sided disc osteophyte consummation. No cord compression. Right neuroforamina narrowing on a degenerative basis. T1-2: Left facet joint hypertrophy as well as ligamentum flavum resulting in ventral deformity of the thecal sac and the left dorsal aspect of the spinal cord. No cord signal abnormality. No neuroforamina stenosis. Flow-void signal within the main vessels is normal. Left vertebral artery is dominant. No prevertebral compartment hematoma, mass or fluid collection. IMPRESSION: Central spinal canal stenosis without cord compression, cord edema and or myelopathy on a multifactorial basis at C3-4 and C4-5 levels. Left facet joint hypertrophy and ligamentum flavum resulting and dorsal deformity of the thecal sac and spinal cord at T1-2 without cord edema and or myelopathy. Multilevel neuroforamina narrowing on a degenerative basis, C3-4, C4-5 C5-6 and C7-T1. 05/11/22 XR CS Mild degenerative changes Assessment & Plan Assessment & Plan (1) Cervical spondylosis: Code(s): M47.812 - Spondylosis without myelopathy or radiculopathy, cervical region Category: Medical (2) Intractable pain: Code(s): R52 - Pain, unspecified Category: Medical (3) Cervical radiculopathy: Code(s): M54.12 - Radiculopathy, cervical region Category: Medical (4) Arm paresthesia, right: Code(s): R20.2 - Paresthesia of skin Category: Medical (5) Chronic neck pain: Code(s): M54.2 - Cervicalgia; G89.29 - Other chronic pain Category: Medical Plan Referring the patient to a hand surgeon for evaluation of carpal tunnel syndrome is recommended, contingent on improved diabetes control, specifically reducing HbA1c levels. Pain relief for cervical spondylosis will be assessed through diagnostic injections, positive results will plan for sprint peripheral nerve stimulator use. Medication management includes continuation of Baclofen, while advising against frequent NSAID use. Ongoing patient education on diabetes management and pain control emphasized for overall health improvement. In our discussion, I informed the patient about the nerve conduction study's findings of carpal tunnel syndrome, recommending a hand surgeon consultation. We discussed that hand surgery options hinge on achieving better diabetes control, requiring HbA1c improvements. In addressing cervical pain from arthritis, we discussed diagnostic injections with anesthetics to evaluate pain relief efficacy and potential nerve stimulator placement without steroid use. We reviewed Baclofen usage and emphasized the risks of NSAIDs on renal function given his diabetic status. Follow-up included steps for pain and diabetes management, potential hand surgery, and cervical pain interventions. Will schedule for fluoroscopy guided diagnostic bilateral C3-C4 C5 medial branch blocks with local anesthetic. Will be performed in 2 separate procedures, left side will be completed 1st with right-side to follow after at least 1 week. Patient was informed and verbally consented to the use of an ambient scribe for clinic note documentation during this visit. Orders: Referrals Hand Surgery Referral G56.00 - Carpal tunnel syndrome, unspecified upper limb Coding Level of Care Code Est Pt Level 3 (87386) Complex EM visit Add On G2211 Diagnoses Cervical spondylosis M47.812 Intractable pain R52 Cervical radiculopathy M54.12 Arm paresthesia, right R20.2 Chronic neck pain M54.2; G89.29
[2024-10-04 13:32] VITALS: BP 128/76; PULSE 85; O2SAT 99; BMI 30.1
== END 2024-10-04 13:45 | disposition home or self-care (01) ==
LOC: HO.PMC 13:14
PROVIDERS: PCP Internal Medicine; Visit Provider Registered Nurse Emergency
DX: M47.812 Spondylosis without myelopathy or radiculopathy, cervical region (principal); M54.12 Radiculopathy, cervical region; R20.2 Paresthesia of skin; M54.2 Cervicalgia; G89.29 Other chronic pain
CPT/HCPCS: 99213; G2211

== ENCOUNTER → 2024-10-04 13:14 | Outpatient (BNVA) | payer OTHER, SELFPAY | PROVIDERS: PCP Internal Medicine; Visit Provider Registered Nurse Emergency | DX: M47.812 Spondylosis without myelopathy or radiculopathy, cervical region (principal); M54.12 Radiculopathy, cervical region; M54.2 Cervicalgia; R20.2 Paresthesia of skin; G89.29 Other chronic pain | CPT/HCPCS: 99212 ==

== ENCOUNTER 2024-11-05 10:48 | Outpatient (AMB) | payer OTHER, SELFPAY ==
--- NOTE | 2024-11-05 10:58 | MHC.OFFVIS ---
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 States his right is worse. He is having on and off CTS, worsens in the night time. Hx of cervical pain. IMPRESSION: 1. This is an abnormal study. 2. There is electrodiagnostic evidence for bilateral moderate-severe median neuropathy at the wrist, consistent with carpal tunnel syndrome. 3. There is no electrodiagnostic evidence for ulnar neuropathy 4. There is no electrodiagnostic evidence for brachial plexopathy, or cervical radiculopathy on the right side. 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 He complains of numbness & pain in his hands, primarily in his right hand. Symptoms intermittent, but daily, worse at night. He also says his fingers occasionally get stuck ad lock up on him. he says this occurs primarily when using his hands for heavy gripping activities. He says he has not been physically active recently and is unsure which fingers lock on him at times. He is newly diagnosed Diabetic and is unsure what his HgA1c is. He has difficulty with spinal stenosis & associated issues. He complains of neck & back pain today and had some questions about his MRI results. I instructed him to speak with the Pain Management department concerning his results, as he is scheduled to be seen next week. [facility] Medical History (Reviewed 10/04/24 @ 13:54 by Luiza Rondon, DERMATOLOGIST MANAGING PARTNER, MECHANICAL REPAIR WORKER) HTN (hypertension) Pancreatitis, alcoholic, acute Alcohol use Hepatic steatosis Anxiety and depression Chronic obstructive pulmonary disease, unspecified Chronic lumbar radiculopathy Insomnia, unspecified House dust mite allergy Perennial non-allergic rhinitis Former smoker Severe persistent asthma, uncomplicated Hyperlipidemia, unspecified Type 2 diabetes mellitus without complications Elevated IgE level Asthma Obesity, unspecified Gastro-esophageal reflux disease without esophagitis Chronic midline low back pain without sciatica Chronic pain Alcohol use disorder Neck pain Social History (Updated 11/05/24 @ 11:07 by JAYME Lazaro) Alcohol intake: current Alcohol intake frequency: 3 or more drinks per day Alcohol type: beer and hard liquor Patient Tobacco Use Status: Former Tobacco user Substance Use Type: Crack/Cocaine 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 Review of Systems Const All systems reviewed & are unremarkable except as noted in HPI and below Physical Exam Vital Signs: BMI result Body Mass Index 30.1 Const General: cooperative, healthy appearing and no acute distress Orientation/consciousness: patient oriented x3 HEENT Head: Yes normocephalic and Yes atraumatic Eyes EOM: EOMs intact bilaterally Resp Effort & Inspection: normal respiratory effort and able to speak in complete sentences Cardio Jugular venous distension: no JVD Skin General skin exam: turgor normal Rashes: no rashes Neuro General: patient oriented x3 Extrem Other: Evaluation of Bilateral Upper Extremity: The patient is alert, oriented, and in no acute distress Neuro: Median, Ulnar, Radial nerves motor and sensory intact and sensation is normal to the tips of all digits No thenar or intrinsic wasting Good APB muscle belly firing and good finger cross Vascular: Cap refill brisk ROM: He can make a fist and extend all his digits No locking or catching Skin: No lacerations or abrasions. General: No Ecchymosis. No Erythema or evidence of infection. Nerve Conduction Study: IMPRESSION: 1. This is an abnormal study. 2. There is electrodiagnostic evidence for bilateral moderate-severe median neuropathy at the wrist, consistent with carpal tunnel syndrome. 3. There is no electrodiagnostic evidence for ulnar neuropathy 4. There is no electrodiagnostic evidence for brachial plexopathy, or cervical radiculopathy on the right side. Zhanna Tracey MD, KIERSTEN 09/18/24 Psych Appearance: grossly normal Affect: normal affect Attitude: cooperative Assessment & Plan Assessment & Plan (1) Carpal tunnel syndrome of right wrist: Code(s): G56.01 - Carpal tunnel syndrome, right upper limb Category: Medical (2) Carpal tunnel syndrome of left wrist: Code(s): G56.02 - Carpal tunnel syndrome, left upper limb Category: Medical (3) Diabetes: Code(s): E11.9 - Type 2 diabetes mellitus without complications Category: Medical Plan Assessment & Plan: 1. Right carpal tunnel syndrome, moderate-severe Symptoms intermittent, but daily, worse at night 2. Left carpal tunnel syndrome, moderate-severe Symptoms intermittent, but daily, worse at night I educated him about this condition I discussed operative and non-operative treatment options The patient would like to proceed with surgery, beginning with the right side The risks and benefits of operative treatment were discussed with the patient and the patient wishes to proceed with surgery. These risks include, but are not limited to risk of damage to blood vessels, nerves, tendons, infection, recurrence, incomplete relief of preoperative symptoms, persistent pain, possible need for further surgery and the risks associated with regional blocks and anesthesia. The plan is to take the patient to the operating room sometime in the next few weeks for the following procedures: 1. Right Carpal tunnel release, under local All of the preoperative paperwork including the consent was reviewed today. All the patient's questions were answered. The patient understands that they will be contacted by our bottom precipitator operator soon to schedule this procedure He denies blood thinners, asthma, heart, lung, kidney issues He is a diabetic. They will need an updated HgA1c that is <8.1% in order to proceed with surgery, and they expressed understanding Scribed for Alberta Altamirano MD by Alek Tompkins, pediatric medical assistant, on 11:10 AM at 11/05/24, EST. Coding Level of Care Code New Pt Level 4 (76172) Diagnoses Carpal tunnel syndrome of right wrist G56.01 Carpal tunnel syndrome of left wrist G56.02 Diabetes E11.9
[2024-11-05 11:00] VITALS: BMI 30.1
--- OUTSIDE RECORDS SUMMARY | 2024-11-05 12:16 | XMS_ITS | Clinical Summary ---
Author Organization [address] Address [address] [place] [address] [place] [address] Phone Care Team Providers [employer] Name Role Phone Amadou Kaufman MD Primary Care Provider Allergies Active Allergy Reactions Criticality Noted Date Comments Other 10/05/2012 Seasonal allergies Penicillins Itching 10/11/2010 Medications baclofen (LIORESAL) 10 mg tablet TAKE 1 TABLET BY MOUTH AT BEDTIME NEEDED FOR SPASM 30 tablet 4 024 Active cloNIDine (CATAPRES) 0.1 mg tablet Take 1 Tablet by mouth 2 times daily. Active EPINEPHrine (EpiPen 2-Tomás) 0.3 mg/0.3 mL injection Inject 1 Device as directed as needed (anaphylaxis). Use as directed 023 Active fexofenadine (RICHARD) 180 mg tablet Take 1 Tablet by mouth at bedtime. 024 Active pen needle, diabetic 32 gauge x 32 needle Use one daily with insulin 024 Active lamoTRIgine (LaMICtal) 25 mg tablet Take 1 Tablet by mouth every morning. 024 Active multivitamin with minerals (MULTIPLE VITAMIN-MINERALS ORAL) Take 1 tablet by mouth daily. Active medical supply, miscellaneous (MISCELLANEOUS MEDICAL SUPPLY MISC) SPACER DEVICE-ADULT use with inhaler 013 Active hydrOXYzine pamoate (VISTARIL) 25 mg capsule Take 1 capsule (25 mg total) by mouth 3 (three) times a day if needed for anxiety. Active metFORMIN (GLUCOPHAGE) 1,000 mg tablet Take 1 tablet (1,000 mg total) by mouth 2 (two) times a day. 180 tablet 1 Active OneTouch UltraSoft LancetsIndicatio ns:Type 2 diabetes mellitus without complication, without long-term current use of insulin ([facility] V24, [facility] V28) Use to check blood sugars once a day 100 each 025 Active blood-glucose meter kitIndications:T ype 2 diabetes mellitus without complication, without long-term current use of insulin ([facility] V24, [facility] V28) Use this machine to test blood sugar once daily 1 each 025 Active FreeStyle Test test stripIndications :Type 2 diabetes mellitus without complication, without long-term current use of insulin ([facility] V24, [facility] V28) Use to check blood sugars once a day 100 each 3 025 2025 Active insulin degludec (Tresiba FlexTouch U-100) 100 unit/mL (3 mL) injection pen Inject 24 Units under the skin at bedtime. 15 mL 2 025 Active dapagliflozin propanediol (FARXIGA) 10 mg tablet Take 1 tablet (10 mg total) by mouth 1 (one) time each day. 30 tablet 6 025 Active amLODIPine (NORVASC) 10 mg tablet Take 1 tablet (10 mg total) by mouth 1 (one) time each day. 90 tablet 1 025 Active cholecalciferol (VITAMIN D-3) 50 mcg (2,000 unit) tablet Take 1 tablet (2,000 Units total) by mouth 1 (one) time each day. 90 tablet 1 025 Active fluticasone-umec lidinium-vilante rol (Trelegy Ellipta) 200-62.5-25 mcg inhaler Inhale 1 puff (200 mcg total) by mouth 1 (one) time each day. Rinse mouth with water after use to reduce aftertaste and incidence of candidiasis. Do not swallow. 1 each 3 Active gabapentin (NEURONTIN) 300 mg capsule Take 1 capsule (300 mg total) by mouth 4 (four) times a day. 120 capsule 4 Active lisinopriL (PRINIVIL,ZESTRI L) 30 mg tablet Take 1 tablet (30 mg total) by mouth 1 (one) time each day. 90 each 1 2025 Active Ventolin HFA 90 mcg/actuation inhaler Inhale 2 puffs by mouth every 4 (four) hours if needed for wheezing or shortness of breath. 18 g 3 Active albuterol 2.5 mg /3 mL (0.083 %) nebulizer solutionIndicati ons:Chronic obstructive pulmonary disease, unspecified COPD type ([facility] V24, [facility] V28) Take 3 mL (2.5 mg total) by nebulization 4 (four) times a day if needed for wheezing or shortness of breath. 300 mL 3 Active amLODIPine (NORVASC) 10 mg tablet Take 1 tablet (10 mg total) by mouth 1 (one) time each day. 90 tablet 1 2024 Discontinued(R eorder) cholecalciferol (VITAMIN D-3) 50 mcg (2,000 unit) tablet Take 1 tablet (2,000 Units total) by mouth 1 (one) time each day. 90 tablet 1 2024 Discontinued(R eorder) gabapentin (NEURONTIN) 300 mg capsule Take 1 capsule (300 mg total) by mouth 4 (four) times a day. 120 capsule 3 2024 Discontinued(R eorder) lisinopriL (PRINIVIL,ZESTRI L) 30 mg tablet Take 1 tablet (30 mg total) by mouth 1 (one) time each day. 90 each 1 2024 Discontinued(R eorder) doxycycline (VIBRAMYCIN) 100 mg capsule Take 1 capsule (100 mg total) by mouth 2 (two) times a day. Take with at least 8 ounces (large glass) of water, do not lie down for 30 minutes after 14 each 025 2024 Discontinued fluticasone-umec lidinium-vilante rol (Trelegy Ellipta) 200-62.5-25 mcg inhaler Inhale 1 puff (200 mcg total) by mouth 1 (one) time each day. Rinse mouth with water after use to reduce aftertaste and incidence of candidiasis. Do not swallow. 1 each 3 025 2024 Discontinued(R eorder) Ventolin HFA 90 mcg/actuation inhaler INHALE 2 PUFFS BY MOUTH EVERY 4 HOURS NEEDED FOR COUGH OR WHEEZING 18 g 2 025 2024 Discontinued(R eorder) Active Problems Problem Noted Date Diagnosed Date [...] complication, without long-term current use of insulin ([facility] V24, [facility] V28) 12/05/2018 Perennial allergic rhinitis 05/25/2017 Severe persistent asthma without complication ([facility] V28) 05/25/2017 Insomnia 03/05/2014 Chronic lumbar radiculopathy 05/31/2013 Asthma-COPD overlap syndrome ([facility] V24, [facility] V28) 10/05/2012 Hepatic steatosis 10/11/2010 Encounters Date Type Department Care Team Description 10/17/2024 11:00 AM EDT Office Visit Adult Medicine [address] [phone] Amadou Kaufman MD Primary hypertension (Primary Dx); Type 2 diabetes mellitus with hyperglycemia, with long-term current use of insulin ([facility] V24, [facility] V28); Chronic obstructive pulmonary disease, unspecified COPD type ([facility] V24, [facility] V28); Anxiety and depression; Chronic midline low back pain without sciatica; Spondylosis of cervical region without myelopathy or radiculopathy; Screening for colorectal cancer; Screening for prostate cancer 08/14/2024 2:00 PM EDT Office Visit Endocrinology [address] [phone] Carmen Mann PA Type 2 diabetes mellitus without complication, without long-term current use of insulin ([facility]) (Primary Dx); Primary hypertension from Last 3 [...] (hypertension), benign DM2 (diabetes mellitus, type 2) ([facility] V24, [facility] V28) DX:DM2 (diabetes mellitus, t ype 2) ([facility]) COPD (chronic obstructive pu lmonary disease) ([facility] V24, [facility] V28) DX:COPD (chronic o bstructive pulmonary disease) ([facility]) Anxiety and depression DX:Anxiet y and depression [...] Sign Reading Time Taken Comments Blood Pressure 136/76 10/17/2024 10:46 AM EDT Pulse 80 10/17/2024 10:46 AM EDT Temperature 36.5 ??C (97.7 ??F) 10/17/2024 10:46 AM E DT Respiratory Rate 16 10/17/2024 10:46 AM EDT Oxygen Saturation 94% 08/14/2024 2:03 PM EDT Inhaled Oxygen Concentration - - Weight 90.7 kg (200 lb) 10/17/2024 10:46 AM EDT Height 172.7 cm (5' 8 ) 10/17/2024 10:46 AM EDT Body Mass Index 30.41 10/17/2024 10:46 AM EDT Plan of Treatment Upcoming Encounters Date Type Department Care Team (Late st Contact Info) Description 11/27/2024 10:45 AM EDT Office Visit Endocrinology [address] [phone] Carmen Mann PA [address] [place] [phone] 02/18/2025 11:15 AM EDT Office Visit Adult Medicine [place] [facility] [address] [place] [address] Amadou Kaufman MD [address] [place] [address] Health Maintenance Due Date Last Done Comments [...] complication, without long-term current use of insulin ([facility]) ANNUAL BMP BLOOD TEST Routine 12/11/2023 HEMOGLOBIN [...] * Annual BMP Blood Test (12/11/2023) Pathologist [facility] Annual BMP Blood Test abstracted Result [facility] Historical Provider HEALTH MAINTENANCE Final Result * (ABNORMAL) Hemoglobin A1c (12/11/2023) [facility] Hemoglobin A1C 10.6(A) <=6.5 % Blood Venous blood specimen / Unknown Result [facility] Provider LAB BLOOD ORDERABLES Carrie l Result * Urine Albumin Creatinine Ratio (05/29/2023) [facility] Urine Albumin Creatinine Ratio abstracted Result [facility] Historical Provider HEALTH MAINTENANCE Final Result * Lipid panel (02/16/2023) [facility] LDL/HDL Ratio 3 0 - 4 Triglycerides 68 0 - 150 mg/dL Cholesterol 132 0 - 200 mg/dL HDL 41 >=40 mg/dL LDL Cholesterol 78 0 - 100 mg/dL Blood Venous blood specimen / Unknown Result [facility] Provider LAB BLOOD ORDERABLES Carrie l Result * Hepatitis C Screening (04/17/2013) [facility] Hepatitis C Screening abstracted Result [facility] Provider HEALTH MAINTENANCE Final Result from Last 3 Months or Most Recently Relevant to Health Maintenance Insurance [facility] MEDICARE Member Subscriber Plan / Payer (Ef fective 2024-Present) Name:GERRY KAMINSKI Relation to Subscriber:Self Name:Gerry Kaminski Payer ID:[id number] Group ID:[id number] Type:Not on file Address: [place] [address] [place] [id number] Care Teams [employer] Intern[employer] Relationship Specialty Start Date End Date Amadou Kaufman MD [address] [place] [address] PCP - General Internal Medicine 12/23/21
== END 2024-11-05 11:33 | disposition home or self-care (01) ==
LOC: HO.HOS 10:48
PROVIDERS: PCP Internal Medicine; Visit Provider Orthopaedic Surgery
DX: G56.03 Carpal tunnel syndrome, bilateral upper limbs (principal); E11.9 Type 2 diabetes mellitus without complications
CPT/HCPCS: 99204

== ENCOUNTER → 2024-11-05 10:48 | Outpatient (BNVA) | payer OTHER, SELFPAY | PROVIDERS: PCP Internal Medicine; Visit Provider Orthopaedic Surgery | DX: G56.01 Carpal tunnel syndrome, right upper limb (principal); G56.02 Carpal tunnel syndrome, left upper limb; E11.9 Type 2 diabetes mellitus without complications | CPT/HCPCS: 99202 ==

== ENCOUNTER 2024-12-03 10:05 | Outpatient (REF) | payer OTHER, SELFPAY ==
--- OUTSIDE RECORDS SUMMARY | 2024-11-29 14:15 | XMS_ITS | Encounter Summary ---
Author Organization [facility] Address [address] [place] [address] Care Team Providers Care Jet Blade Polisher Name Role Phone Amadou Kaufman MD Primary Care Provider [phone] Reason for Referral * Consultation (Routine) - Closed Specialty Diagnoses / Procedures Referred By Alfie núñez Referred To Contact Ophthalmology Diagnoses Type 2 diabetes mellitus without complication, without long-term current use of insulin ([facility] V24, [facility] V28) Carmen Mann PA [address] [place] [address] Phone: tel: fax: [facility] [address] [facility] [address] [place] [address] Phone: tel: fax: Referral ID Status Reason Start Date Expiration Date V isits Requested Visits Authorized [id number] Closed Specialty Services Required 11/29/2024 11/29/2025 1 1 Reason for Visit * Reason Comments Diabetes Mellitus Encounter Details Date Type Department Care Team ([facility] st Contact Info) Description 11/29/2024 2:15 PM EDT Office Visit Endocrinology - [address] [phone] Carmen Mann PA [address] [facility] [address] Type 2 diabetes mellitus without complication, without long-term current use of insulin ([facility] V24, [facility] V28) (Primary Dx); Primary hypertension; Hyperlipidemia LDL goal <100 Social History Tobacco Use Types Packs/Day Years [...] on file Sexual Orientation Not on file documented as of this encounter Last Filed Vital Signs Vital Sign Reading Time Taken Comments Blood Pressure 130/78 11/29/2024 2:31 PM EDT C Pulse 91 11/29/2024 2:31 PM EDT Temperature 36.3 C (97.3 F) 11/29/2024 2:31 PM EDT Respiratory Rate - - Oxygen Saturation - - Inhaled Oxygen Concentration - - Weight 88.6 kg (195 lb 6.4 oz) 11/29/2024 2:31 P M EDT Height 172.7 cm (5' 8 ) 11/29/2024 2:31 PM EDT Body Mass Index 29.71 11/29/2024 2:31 PM EDT documented in this encounter Ordered Prescriptions Prescription Sig Dispense Quantity Refills Last Filled Start Date End Date Nutritional Drink liquid Take 1 bottle of boost 30 each 5 11/29/2024 metFORMIN (GLUCOPHAGE) 1,000 mg tablet Take 1 tablet (1,000 mg total) by mouth 2 (two) times a day. 180 tablet 1 11/29/2024 insulin degludec (Tresiba FlexTouch U-100) 100 unit/mL (3 mL) injection pen Inject 28 Units under the skin at bedtime. 45 mL 3 11/29/2024 dapagliflozin propanediol (FARXIGA) 10 mg tablet Take 1 tablet (10 mg total) by mouth 1 (one) time each day. 90 tablet 3 11/29/2024 documented in this encounter Progress Notes * Slime Amin MA - 11/29/2024 2:15 PM EDT FSBS - 129- Fasting * APRIL Mcmullen - 11/29/2024 2:15 PM EDT CHIEF COMPLAINT: Diabetes Mellitus IDENTIFIER: Hernan Mcguire is a 63 y.o. old male. HPI: Patient presents to the office for follow up on diabetes. Past medical history of type 2 diabetes, asthma, osteoarthritis, hyperlipidemia, hypertension, GERD, COPD, anxiety, and depression. Type 2 diabetes: HemoGlobin A1c: Lab Results Component Value Date HGBA1C 8.6 (H) 11/27/2024 HGBA1C 10.6 (A) 12/11/2023 . Great improvement in his A1c. Normally uses [facility], he is not using it currently because he had someissues with connecting into the phone. States he is getting a new phone Blood sugar in the office 129 Patient with multiple history of pancreatitis, some from alcohol abuse, and states he even developed thrombosis from it Last visit I stopped Rybelsus due to history of pancreatitis, also stop glipizide due to low C-peptide Diabetes medications: Metformin at 1000 mg twice a day Farxiga 10 mg Lantus 24 units Kidney labs were normal He is due for eye exam. I placed referral but afterwards I noticed referral was already placed. He received a letter he was referred to [facility] but states he never received that. Information provided so he can call [facility] eye care to schedule his appointment He is requesting boost nutrition abelardo Hypertension: Blood pressure 130/78. On lisinopril 20 mg and amlodipine 10 mg Wt Readings from Last 3 Encounters: 11/29/24 88.6 kg (195 lb 6.4 oz) 10/17/24 90.7 kg (200 lb) 08/14/24 89.4 kg (197 lb) ROS: GENERAL: No malaise, significant weight loss or fever HEENT: No changes in hearing or vision, nose bleeds or other nasal problems RESPIRATORY: No cough, wheezing or shortness of breath CARDIOVASCULAR: No chest pain, leg swelling or palpitations GI: No abdominal discomfort, blood in stools or black stools ENDOCRINE: See HPI MUSCULOSKELETAL: No joint pain or swelling, back pain, or muscle pain. NEURO: No persistent headache, syncope, seizures, weakness or numbness PAST MEDICAL HISTORY: Patient Active Problem List Diagnosis Date Noted Pancreatitis, alcoholic, acute 04/04/2024 Primary hypertension 04/04/2024 Alcohol use disorder in remission 02/07/2024 Seasonal allergic rhinitis 08/14/2023 Osteoarthritis of cervical spine 05/29/2023 Alcohol use disorder 02/14/2023 Chronic midline low back pain without sciatica 08/12/2022 GERD (gastroesophageal reflux disease) 02/19/2019 Elevated IgE level 01/08/2019 Obese 01/08/2019 Hyperlipidemia LDL goal <100 12/05/2018 Type 2 diabetes mellitus without complication, without long-term current use of insulin ([facility] V24, [facility] V28) 12/05/2018 Perennial allergic rhinitis 05/25/2017 Severe persistent asthma without complication ([facility] V[facility]) 05/25/2017 Insomnia 03/05/2014 Chronic lumbar radiculopathy 05/31/2013 Asthma-COPD overlap syndrome ([facility] V[facility], [facility] V28) 10/05/2012 Hepatic steatosis 10/11/2010 SOCIAL HISTORY: Social History Tobacco Use Smoking status: Former Current packs/day: 0.00 Types: Cigarettes Quit date: 07/20/2012 Years since quittin.3 Smokeless tobacco: Never Substance Use Topics Alcohol use: Not Currently FAMILY HISTORY: Family Status Relation Name Status Mother Alive mild dementia Father Alive Alzheimer's Neg Hx (Not Specified) Sister Alive healthy Sister Alive healthy Brother Alive healthy MGM MGF PGM PGF Son Alive age 32 (2014); healthy No partnership data on file Family History Problem Relation Name Age of Onset Diabetes Mother Alzheimer's disease Father 83 y/o Colon cancer Neg Hx Prostate cancer Neg Hx Breast cancer Neg Hx Coronary artery disease Neg Hx ACTIVE MEDICATIONS: Outpatient Medications Marked as Taking for the 11/29/24 encounter (Office Visit) with APRIL Mcmullen Medication Sig Dispense Refill albuterol 2.5 mg /3 mL (0.083 %) nebulizer solution Take 3 mL (2.5 mg total) by nebulization 4 (four) times a day if needed for wheezing or shortness of breath. 300 mL 3 amLODIPine (NORVASC) 10 mg tablet Take 1 tablet (10 mg total) by mouth 1 (one) time each day. 90 tablet 1 baclofen (LIORESAL) 10 mg tablet TAKE 1 TABLET BY MOUTH AT BEDTIME NEEDED FOR SPASM 30 tablet 4 blood-glucose meter kit Use this machine to test blood sugar once daily 1 each 0 cholecalciferol (VITAMIN D-3) 50 mcg (2,000 unit) tablet Take 1 tablet (2,000 Units total) by mouth1 (one) time each day. 90 tablet 1 cloNIDine (CATAPRES) 0.1 mg tablet Take 1 Tablet by mouth 2 times daily. dapagliflozin propanediol (FARXIGA) 10 mg tablet Take 1 tablet (10 mg total) by mouth 1 (one) time each day. 90 tablet 3 EPINEPHrine (EpiPen 2-Tomás) 0.3 mg/0.3 mL injection Inject 1 Device as directed as needed (anaphylaxis). Use as directed fexofenadine (RICHARD) 180 mg tablet Take 1 Tablet by mouth at bedtime. rmdempgomnq-lkjbnlspvkig-haxowdzbnj (Trelegy Ellipta) 200-62.5-25 mcg inhaler Inhale 1 puff (200 mcg total) by mouth 1 (one) time each day. Rinse mouth with water after use to reduce aftertaste and incidence of candidiasis. Do not swallow. 1 each 3 FreeStyle Test test strip Use to check blood sugars once a day 100 each 3 gabapentin (NEURONTIN) 300 mg capsule Take 1 capsule (300 mg total) by mouth 4 (four) times a day. 120 capsule 4 hydrOXYzine pamoate (VISTARIL) 25 mg capsule Take 1 capsule (25 mg total) by mouth 3 (three) times a day if needed for anxiety. insulin degludec (Tresiba FlexTouch U-100) 100 unit/mL (3 mL) injection pen Inject 28 Units under the skin at bedtime. 45 mL 3 lamoTRIgine (LaMICtal) 25 mg tablet Take 1 Tablet by mouth every morning. lisinopriL (PRINIVIL,ZESTRIL) 30 mg tablet Take 1 tablet (30 mg total) by mouth 1 (one) time each day. 90 each 1 medical supply, miscellaneous (MISCELLANEOUS MEDICAL SUPPLY MISC) SPACER DEVICE-ADULT use with inhaler metFORMIN (GLUCOPHAGE) 1,000 mg tablet Take 1 tablet (1,000 mg total) by mouth 2 (two) times a day.180 tablet 1 multivitamin with minerals (MULTIPLE VITAMIN-MINERALS ORAL) Take 1 tablet by mouth daily. OneTouch UltraSoft Lancets Use to check blood sugars once a day 100 each 3 pen needle, diabetic 32 gauge x 5/32 needle Use one daily with insulin Ventolin HFA 90 mcg/actuation inhaler Inhale 2 puffs by mouth every 4 (four) hours if needed for wheezing or shortness of breath. 18 g 3 [DISCONTINUED] dapagliflozin propanediol (FARXIGA) 10 mg tablet Take 1 tablet (10 mg total) by mouth 1 (one) time each day. 30 tablet 6 [DISCONTINUED] insulin degludec (Tresiba FlexTouch U-100) 100 unit/mL (3 mL) injection pen Inject 24 Units under the skin at bedtime. 15 mL 2 [DISCONTINUED] metFORMIN (GLUCOPHAGE) 1,000 mg tablet Take 1 tablet (1,000 mg total) by mouth 2 (two) times a day. 180 tablet 1 ALLERGIES: Other and Penicillins PHYSICAL EXAM: Blood pressure 130/78, pulse 91, temperature 36.3 ??C (97.3 ??F), temperature source Temporal, height 1.727 m (68 ), weight 88.6 kg (195 lb 6.4 oz). Body mass index is 29.71 kg/m??. Plan is deferred until next visit APPEARANCE: Alert and in no acute distress NEURO: Awake, alert and oriented x 3 LABS: Lab Results Component Value Date HGBA1C 8.6 (H) 11/27/2024 CHOL 132 02/16/2023 LDL 78 02/16/2023 HDL 41 02/16/2023 TRIG 68 02/16/2023 Lab Results Component Value Date GLUCOSE 129 11/29/2024 No results found for: TSH IMAGING: IMPRESSION: 1. Type 2 diabetes mellitus without complication, without long-term current use of insulin ([facility], [facility] V28) 2. Primary hypertension 3. Hyperlipidemia LDL goal <100 PLAN: Patient presents to the office for follow-up on diabetes 1. Diabetes: Labs reviewed. Great improvement Increase Tresiba to 28 units, if sugar readings above 130 go up to 38 Restart back on sensors Refill on metformin and Farxiga Referral to for eye exam place 2. Hypertension: Blood pressure at goal. Continue with current blood pressure lowering medication 3. Hyperlipidemia: Cholesterol labs ordered All questions and concerns were addressed. Patient understands and agrees with this treatment plan.Patient was reminded to call or return to the office if any new or existing problems arise This document was made using voice recognition software. It may contain some errors in grammar or syntax Medication and lab orders: Type 2 diabetes mellitus without complication, without long-term current use of insulin ([facility] V24, [facility] V28) (Primary) - POC glucose manually resulted - Ambulatory referral to Ophthalmology; Future - Hemoglobin A1c; Future Primary hypertension Hyperlipidemia LDL goal <100 Other orders - dapagliflozin propanediol (FARXIGA) 10 mg tablet; Take 1 tablet (10 mg total) by mouth 1 (one) time each day. Dispense: 90 tablet; Refill: 3 - insulin degludec (Tresiba FlexTouch U-100) 100 unit/mL (3 mL) injection pen; Inject 28 Units under the skin at bedtime. Dispense: 45 mL; Refill: 3 - metFORMIN (GLUCOPHAGE) 1,000 mg tablet; Take 1 tablet (1,000 mg total) by mouth 2 (two) times a day. Dispense: 180 tablet; Refill: 1 - Nutritional Drink liquid; Take 1 bottle of boost Dispense: 30 each; Refill: 5 APRIL Mcmullen on 11/29/2024 at 2:53 PM EDT documented in this encounter Plan of Treatment Upcoming Encounters Date Type Department Care Team (Late st Contact Info) Description 02/18/2025 11:15 AM EDT Office Visit Adult Medicine [address] [phone] Amadou Kaufman MD [address] [place] [address] 03/04/2025 11:00 AM EDT Office Visit Endocrinology [address] [phone] Carmen Mann PA [address] [place] [address] Scheduled Orders Name Type Priority Associated Diagnoses Orde r Schedule Hemoglobin A1c Lab Routine Type 2 diabetes mellitus without complication, without long-term current use of insulin ([facility], [facility] V[facility]) 1 Occurrences starting 11/29/2024 until 11/29/2025 Lipid panel with reflex to direct LDL Lab Routine Hyperlipidemia LDL goal <100 1 Occurrences starting 11/29/2024 until 11/29/2025 Scheduled Referrals Name Type Priority Associated Diagnoses Order Schedule Ambulatory referral to Ophthalmology Outpatient Referral Routine Type 2 diabetes mellitus without complication, without long-term current use of insulin ([facility], [facility] V28) 1 Occurrences starting 11/29/2024 until 11/29/2025 documented as of this encounter Procedures Procedure Name Priority Date/Time Associated Diagnosis Comments POC GLUCOSE Routine 11/29/2024 2:50 PM EDT Type 2 diabetes mellitus without complication, without long-term current use of insulin ([facility], [facility] V28) documented in this encounter Results * POC glucose manually resulted (11/29/2024 2:50 PM EDT) [facility] Glucose POC 129 mg/dL Comment:Fasting Blood Capillary blood specimen / Unknown 11/29/2024 2:50 PM EDT Carmen CHEN POINT OF CARE TEST ENTER/ED IT ORDERABLES Final Result documented in this encounter Visit Diagnoses Diagnosis Type 2 diabetes mellitus without complication, without long-term current use of insulin ([facility], [facility] V28)- Primary Primary hypertension Unspecified essential hypertension Hyperlipidemia LDL goal <100 Other and unspecified hyperlipidemia documented in this encounter Discontinued Medications Medication Sig Discontinue Reason Start Date End Da te metFORMIN (GLUCOPHAGE) 1,000 mg tablet Take 1 tablet (1,000 mg total) by mouth 2 (two) times a day. Reorder 06/19/2024 11/29/2024 insulin degludec (Tresiba FlexTouch U-100) 100 unit/mL (3 mL) injection pen Inject 24 Units under the skin at bedtime. Reorder 08/14/2024 11/29/2024 dapagliflozin propanediol (FARXIGA) 10 mg tablet Take 1 tablet (10 mg total) by mouth 1 (one) time each day. Reorder 09/20/2024 11/29/2024 documented as of this encounter Care Teams Jet Blade Polisher Relationship Specialty Start Date End Date Amadou Kaufman MD [address] [place] [address] PCP - General Internal Medicine 12/23/21 documented as of this encounter
--- OUTSIDE RECORDS SUMMARY | 2024-12-03 11:04 | XMS_ITS | Clinical Summary ---
Author Organization [facility] Address [address] [place] [address] Care Team Providers Care Director Of Math Name Role Phone Flor Coffey MD Primary Care Provider [phone] Allergies No known active allergies Medications Medication [...] 94 02/14/2022 12:00 PM EDT Temperature 36.1 C (96.9 F) 02/14/2022 12:00 PM EDT Respiratory Rate 18 02/14/2022 12:00 PM EDT [...] (1 of 2) 2010 Influenza Vaccine (#1) 2025 RSV Adult > 60+ Yrs or Pregn [...] age to complete this topic Care Teams Director Of Math Relationship Specialty Start Date End Date Flor Coffey MD PCP - General Internal Medicine 09/29/21
== END 2024-12-03 10:06 | disposition home or self-care (01) ==
LOC: CF 10:05
PROVIDERS: Visit Provider Anesthesiology
DX: Z13.89 Encounter for screening for other disorder (principal)

== ENCOUNTER 2024-12-10 06:08 | Outpatient (REF) | payer OTHER, SELFPAY ==
--- NOTE | ~2024-12-10 | FL_ITS ---
EXAMINATION: FL GUIDANCE ONLY HISTORY: M47.812 - Spondylosis without myelopathy or radiculopathy, cervical region COMPARISON: None available. TECHNIQUE: Fluoroscopy time: 0.5 minutes. Cumulative Dose: 5.83 mGy. DAP: 0.0852 mGym2 Images: 3. FINDINGS: There are scattered spot films of the cervical spine demonstrate needles and contrast material in the left neck. FL/FL guidance in treatment room IMPRESSION: Fluoroscopy during procedure. Please see procedure report for additional information. Electronically signed by: Chris Thomson MD 12/10/2024 11:43 AM EDT
--- OUTSIDE RECORDS SUMMARY | 2024-12-10 06:10 | XMS_ITS | Clinical Summary ---
Author Organization [facility] Address [address] [place] [address] Phone Care Team Providers Care Flatwork Washer Name Role Phone Flor Coffey MD Primary Care Provider [phone] Social History Tobacco Use Types Packs/Day Years Used Date Smoking Tobacco: Never Assessed Education Answer Date Recorded Are you interested in more education? Not on raj e 09/16/2022 Are you concerned about learning? Not on file 09/16/2022 No 09/16/2022 No 09/16/2022 Digital Access Answer Date Recorded No 10/18/2022 No 10/18/2022 Reliable internet access at home? Not on file 10/18/2022 Device with a working camera? Not on file Sex and Gender Information Value Date Recorded Sex Assigned at Not on file Legal Sex Male 9:13 AM EST Gender Identity Not on file Sexual Orientation Not on file Plan of Treatment Not on file Medical Devices Not on file [place] [id number] [facility] [place] [id number] MEDICARE PART A & B Member Subscriber Plan / Payer (Ef fective 2014-) Name:Hernan Mcguire Member ID:[id number] Relation to Subscriber:Self Name:Hernan Mcguire Subscriber ID:[id number] Payer ID:[id number] Group ID:Not on file Type:Medicare Address: [employer] [address] [place], [place] [address] [address] MEDICARE PART A & B Member Subscriber Plan / Payer (Ef fective 2014-) Name:Hernan Mcguire Member ID:[id number] Relation to Subscriber:Self Name:Hernan Mcguire Subscriber ID:[id number] Payer ID:[id number] Group ID:Not on file Type:Medicare Address: [employer] [address] [place] MEDICARE PART A & [facility] [place] [id number] MEDICARE PART A & B Member Subscriber Plan / Payer (Ef fective 2014-Present) Name:Hernan Mcguire Member ID:[id number] Relation to Subscriber:Self Name:Maynor Hernan Subscriber ID:[id number] Payer ID:[id number] Group ID:Not on file Type:Medicare Address: [employer] [address] [place] [phone] [facility] Member Subscriber Plan / Payer (Ef fective 2014-Present) Name:Hernan Mcguire Member ID:[id number] Relation to Subscriber:Self Name:Kole Mcguiree Subscriber ID:[id number] Payer ID:[id number] Group ID:Not on file Type:Medicare Address: [employer] [address] [place] [phone] [facility] MEDICARE PART A & B Member Subscriber Plan / Payer (Ef fective 2014-Present) Name:Maynor Hernan Member ID:[id number] Relation to Subscriber:Self Name:Hernan Mcguire Subscriber ID:[id number] Payer ID:[id number] Group ID:Not on file Type:Medicare Address: [employer] [address] [place] MEDICARE PART A & B Member Subscriber Plan / Payer (Ef fective 2014-Present) Name:Hernan Mcguire Member ID:[id number] Relation to Subscriber:Self Name:Hernan Mcguire Subscriber ID:[id number] Payer ID:[id number] Group ID:Not on file Type:Medicare Address: [employer] [address] [place], [place] [id number] [facility] MEDICARE PART A & B [facility] Care Teams Flatwork Washer Relationship Specialty Start Date End Date Flor Coffey MD [address] [place] [address] PCP - General Internal Medicine 06/08/20 Additional Source Comments The information contained in this document represents components of the legal health record. It is not the complete legal health record.[facility]
--- OUTSIDE RECORDS SUMMARY | 2024-12-10 06:10 | XMS_ITS | Clinical Summary ---
Author Organization [facility] Address [address] [place] [address] Care Team Providers Care Tile Presser Name Role Phone Flor Coffey MD Primary Care Provider [phone] Allergies No known active allergies Medications Medication [...] age to complete this topic Care Teams Tile Presser Relationship Specialty Start Date End Date Flor Coffey MD PCP - General Internal Medicine 09/29/21
--- OUTSIDE RECORDS SUMMARY | 2024-12-10 06:10 | XMS_ITS | Clinical Summary ---
Author Organization [address] Address [address] [place] [address] [place] [address] Phone Care Team Providers Care Ornithology Teacher Name Role Phone Amadou Kaufman MD Primary [...] DEVICE-ADULT use with inhaler 10/06/19 13 Active hydrOXYzine pamoate (VISTARIL) 25 mg capsule Take 1 capsule (25 mg total) by mouth 3 (three) times a day if needed for anxiety. Active OneTouch UltraSoft LancetsIndication s:Type 2 diabetes mellitus without complication, without long-term current use of insulin ([facility], [facility] V28) Use to check blood sugars once a day 100 each 3 08/15/19 25 Active blood-glucose meter kitIndications:Ty pe 2 diabetes mellitus without complication, without long-term current use of insulin ([facility] V24, [facility] V28) Use this machine to test blood sugar once daily 1 each 08/15/19 25 Active FreeStyle Test test stripIndications: Type 2 diabetes mellitus without complication, without long-term current use of insulin ([facility] V24, [facility] V28) Use to check blood sugars once a day 100 each 3 08/15/19 25 026 Active amLODIPine (NORVASC) 10 mg tablet Take 1 tablet (10 mg total) by mouth 1 (one) time each day. 90 tablet 1 10/18/19 25 Active cholecalciferol (VITAMIN D-3) 50 mcg (2,000 unit) tablet Take 1 tablet (2,000 Units total) by mouth 1 (one) time each day. 90 tablet 1 10/18/19 25 Active fluticasone-umecl idinium-vilantero l (Trelegy Ellipta) 200-62.5-25 mcg inhaler Inhale 1 puff (200 mcg total) by mouth 1 (one) time each day. Rinse mouth with water after use to reduce aftertaste and incidence of candidiasis. Do not swallow. 1 each 3 10/18/19 25 Active gabapentin (NEURONTIN) 300 mg capsule Take 1 capsule (300 mg total) by mouth 4 (four) times a day. 120 capsule 4 10/18/19 25 Active lisinopriL (PRINIVIL,ZESTRIL ) 30 mg tablet Take 1 tablet (30 mg total) by mouth 1 (one) time each day. 90 each 1 10/18/19 25 026 Active Ventolin HFA 90 mcg/actuation inhaler Inhale 2 puffs by mouth every 4 (four) hours if needed for wheezing or shortness of breath. 18 g 3 10/18/19 25 Active albuterol 2.5 mg /3 mL (0.083 %) nebulizer solutionIndicatio ns:Chronic obstructive pulmonary disease, unspecified COPD type (CMS/HCC V24, CMS/HCC V28) Take 3 mL (2.5 mg total) by nebulization 4 (four) times a day if needed for wheezing or shortness of breath. 300 mL 3 10/18/19 25 Active dapagliflozin propanediol (FARXIGA) 10 mg tablet Take 1 tablet (10 mg total) by mouth 1 (one) time each day. 90 tablet 3 11/30/19 25 Active insulin degludec (Tresiba FlexTouch U-100) 100 unit/mL (3 mL) injection pen Inject 28 Units under the skin at bedtime. 45 mL 3 11/30/19 25 Active metFORMIN (GLUCOPHAGE) 1,000 mg tablet Take 1 tablet (1,000 mg total) by mouth 2 (two) times a day. 180 tablet 1 11/30/19 25 Active Nutritional Drink liquid Take 1 bottle of boost 30 each 5 11/30/19 25 Active metFORMIN (GLUCOPHAGE) 1,000 mg tablet Take 1 tablet (1,000 mg total) by mouth 2 (two) times a day. 180 tablet 1 06/19/19 25 025 Discontin ued(Reord er) insulin degludec (Tresiba FlexTouch U-100) 100 unit/mL (3 mL) injection pen Inject 24 Units under the skin at bedtime. 15 mL 2 08/15/19 25 025 Discontin ued(Reord er) dapagliflozin propanediol (FARXIGA) 10 mg tablet Take 1 tablet (10 mg total) by mouth 1 (one) time each day. 30 tablet 6 09/21/19 25 025 Discontin ued(Reord er) Active Problems [...] complication, without long-term current use of insulin ([facility] V24, [facility] V28) 12/05/2018 Perennial allergic rhinitis 05/25/2017 Severe persistent asthma without complication ([facility] V28) 05/25/2017 Insomnia 03/05/2014 Chronic lumbar radiculopathy 05/31/2013 Asthma-COPD overlap syndrome ([facility], [facility] V28) 10/05/2012 Hepatic steatosis 10/11/2010 Encounters Date Type Department Care Team Description 11/29/2024 2:15 PM EDT Office Visit Endocrinology [address] [phone] Carmen Mann PA Type 2 diabetes mellitus without complication, without long-term current use of insulin ([facility] V24, [facility] V28) (Primary Dx); Primary hypertension; Hyperlipidemia LDL goal <100 10/17/2024 11:00 AM EDT Office Visit Adult Medicine [address] [phone] Amadou Kaufman MD Primary hypertension (Primary Dx); Type 2 diabetes mellitus with hyperglycemia, with long-term current use of insulin ([facility] V24, [facility] V28); Chronic obstructive pulmonary disease, unspecified COPD type ([facility] V24, [facility] V28); Anxiety and depression; Chronic midline low back pain without sciatica; Spondylosis of cervical region without myelopathy or radiculopathy; Screening for colorectal cancer; Screening for prostate cancer from Last 3 Months Immunizations Name [...] (hypertension), benign DM2 (diabetes mellitus, type 2) ([facility] V24, [facility] V28) DX:DM2 (diabetes mellitus, t ype 2) ([facility]) COPD (chronic obstructive pu lmonary disease) ([facility] V24, [facility] V28) DX:COPD (chronic o bstructive pulmonary disease) ([facility]) Anxiety and depression DX:Anxiet y [...] F) 11/29/2024 2:31 PM EDT Respiratory Rate 16 10/17/2024 10:46 AM EDT Oxygen Saturation 94% 08/14/2024 2:03 PM EDT Inhaled Oxygen Concentration - - Weight 88.6 kg (195 lb 6.4 oz) 11/29/2024 2:31 P M EDT Height 172.7 cm (5' 8 ) 11/29/2024 2:31 PM EDT Body Mass Index 29.71 11/29/2024 2:31 PM EDT Plan of Treatment Upcoming Encounters Date Type Department Care Team (Late st Contact Info) Description 02/18/2025 11:15 AM EDT Office Visit Adult Medicine [address] [phone] Amadou Kaufman MD [address] [place] [address] 03/04/2025 11:00 AM EDT Office Visit Endocrinology [address] [phone] Carmen Mann PA [address] [place] [address] Health Maintenance Due Date Last Done Comments Diabetes: Annual Foot Exam 1970 Diabetes: Annual Retina Eye Exam 1970 Hepatitis A Vaccines (1 of 2 - Risk 2-dose series) 12/20/1979 RSV Immunization Adult Patients (1 - Risk 60-74 years 1-dose series) 2020 Colorectal Cancer Screening: Stool Based Tests (FOBT/FIT) 04/30/2022 HIV Screening 04/30/2022 Medicare Annual Wellness Visit 04/30/2022 Social Influencers of Health Screening 04/30/2022 DTaP,Tdap,and Td Vaccines (3 - Td or Tdap) 07/30/2022 07/30/2012, 07/09/2011 Depression Screening 05/22/2024 Influenza Vaccine (#1) 2025 , 02/14/2023, 04/12/2022, Additional history exists Diabetes: Blood Sugar Control Test (HGBA1C) 05/30/2025 11/27/2024, 12/11/2023, 12/11/2023 Diabetes: Annual Urine Albumin-Creatinine Ratio (uACR) 11/27/2025 11/27/2024, 05/29/2023 Diabetes: Annual GFR (Glomerular Filtration Rate) 11/27/2025 11/27/2024, 12/11/2023, 12/11/2023 Hypertension/CHF/CAD Annual BMP Blood Test 11/27/2025 11/27/2024, 12/11/2023, 12/11/2023 Cholesterol Screening (Lipid Panel) 02/17/2028 02/16/2023 Hepatitis C Screening Completed 04/17/2013 COVID-19 Vaccine Completed 02/03/2024, , 09/13/2021, Additional history exists MMR Vaccines Aged Out 03/05/2024 No longer eligi ble based on patient's age to complete this topic Pneumococcal Vaccine: 50+ Years Completed 04/24/2024, 08/25/2014 Zoster Vaccines Completed 04/24/2024, [...] complication, without long-term current use of insulin ([facility] V24, [facility] V28) BASIC METABOLIC PANEL Routine 11/27/2024 11:37 AM EDT Poorly-controlled hypertension Type 2 diabetes mellitus without complication, without long-term current use of insulin ([facility] V24, [facility] V28) MICROALBUMIN CREATININE URINE RATIO Routine 11/27/2024 11:37 AM EDT Type 2 diabetes mellitus without complication, without long-term current use of insulin ([facility]/HCC V24, CMS/HCC V28) HEPATIC FUNCTION PANEL Routine 11/27/2024 11:37 AM EDT Alcohol use disorder in remission HEMOGLOBIN A1C Routine 11/27/2024 11:37 AM EDT Type 2 diabetes mellitus without complication, without long-term current use of insulin ([facility]) PROSTATE SPECIFIC ANTIGEN SCREEN Routine 11/27/2024 11:37 AM EDT Screening for prostate cancer LIPID PANEL Routine 02/16/2023 HEPATITIS C SCREENING Routine 04/17/2013 from Last 3 Months or Most Recently Relevant to Health Maintenance Results * POC glucose manually resulted (11/29/2024 2:50 PM EDT) Pathologist [facility] Glucose POC 129 mg/dL Comment:Fasting Blood Capillary blood specimen / Unknown 11/29/2024 2:50 PM EDT us Carmen CHEN POINT OF CARE TEST ENTER/ED IT ORDERABLES Final Result * Prostate specific antigen screen (11/27/2024 11:37 AM EDT) PSA 3.23 0.00 - 4.00 ng/mL LAB CHEMISTRY METHOD 11/27/2024 4:36 PM EDT [facility] Blood Venous blood specimen / Unknown Venipuncture / Unknown 11/27/2024 11:37 AM EDT 11/27/2024 11:37 AM EDT Narrative [facility] - 11/27/2024 4:36 PM EDT The Siemens Advia Centaur Chemiluminescent Immunoassay is used. Results obtained with different assay methods or kits cannot be used interchangeably. Results cannot be interpreted as absolute evidence of the presence or absence of malignant disease. Amadou Kaufman MD LAB BLOOD ORDERABLES Final Result Performing Organization Address [facility]/ZIP Co de Phone Number [facility] [address] [place] [address], [place] [phone] * Microalbumin creatinine urine ratio (11/27/2024 11:37 AM EDT) Creatinine, Urine 80.0 mg/dL LAB CHEMISTRY METHOD 11/27/2024 3:34 PM EDT [facility] Microalb, Ur 10.8 0.0 - 29.0 mg/L LAB CHEMISTRY METHOD 11/27/2024 3:34 PM EDT [facility] Microalb/Creat Ratio 14 <30 mg/g creat LAB CHEMISTRY METHOD 11/27/2024 3:34 PM EDT [facility] Urine Urine specimen obtained by clean catch procedure / Unknown Non-blood Collection / Unknown 11/27/2024 11:37 AM EDT 11/27/2024 11:37 AM EDT Amadou Kaufman MD LAB URINE ORDERABLES Final Result Performing Organization Address [facility]/ZIP Co de Phone Number [facility] [address] [place] [address], [place] [phone] * (ABNORMAL) Hemoglobin A1c (11/27/2024 11:37 AM EDT) Hemoglobin A1C 8.6(H) <6.5 % LAB CHEMISTRY METHOD 11/28/2024 12:05 PM EDT [facility] Mean Bld Glu Estim. 200 mg/dL LAB CHEMISTRY METHOD 11/28/2024 12:05 PM EDT [facility] Blood Venous blood specimen / Unknown Venipuncture / Unknown 11/27/2024 11:37 AM EDT 11/27/2024 11:37 AM EDT Carmen CHEN LAB BLOOD ORDERABLES Final Result [facility] [address] [place] [address], * Hepatic function panel (11/27/2024 11:37 AM EDT) Total Protein 7.1 6.0 - 8.0 g/dL LAB CHEMISTRY METHOD 11/27/2024 3:52 PM [facility] Albumin 3.9 3.2 - 5.0 g/dL LAB CHEMISTRY METHOD 11/27/2024 3:52 PM [facility] Total Bilirubin 0.3 0.0 - 1.4 mg/dL LAB CHEMISTRY METHOD 11/27/2024 3:52 PM [facility] Bilirubin, Direct 0.1 0.0 - 0.3 mg/dL LAB CHEMISTRY METHOD 11/27/2024 3:52 PM [facility] Bilirubin, Indirect 0.2 0.0 - 1.1 mg/dL LAB CHEMISTRY METHOD 11/27/2024 3:52 PM [facility] ALT (SGPT) 23 10 - 60 unit/L LAB CHEMISTRY METHOD 11/27/2024 3:52 PM [facility] AST (SGOT) 15 10 - 42 unit/L LAB CHEMISTRY METHOD 11/27/2024 3:52 PM [facility] Alkaline Phosphatase 69 42 - 121 unit/L LAB CHEMISTRY METHOD 11/27/2024 3:52 PM [facility] Blood Venous blood specimen / Unknown Venipuncture / Unknown 11/27/2024 11:37 AM EDT 11/27/2024 11:37 AM EDT Amadou Kaufman MD LAB BLOOD ORDERABLES Final Result [facility] [address] [place] [address], [place] [phone] * Basic metabolic panel (11/27/2024 11:37 AM EDT) Sodium 140 133 - 145 mmol/L LAB CHEMISTRY METHOD 11/27/2024 3:52 PM T [facility] Potassium 3.9 3.5 - 5.5 mmol/L LAB CHEMISTRY METHOD 11/27/2024 3:52 PM [facility] Chloride 103 96 - 110 mmol/L LAB CHEMISTRY METHOD 11/27/2024 3:52 PM [facility] CO2 30 21 - 32 mmol/L LAB CHEMISTRY METHOD 11/27/2024 3:52 PM [facility] Anion Gap 7 3 - 11 LAB CHEMISTRY METHOD 11/27/2024 3:52 PM [facility] Glucose 78 70 - 100 mg/dL LAB CHEMISTRY METHOD 11/27/2024 3:52 PM [facility] BUN 8 5 - 25 mg/dL LAB CHEMISTRY METHOD 11/27/2024 3:52 PM [facility] Creatinine 0.74 0.70 - 1.30 mg/dL LAB CHEMISTRY METHOD 11/27/2024 3:52 PM [facility] eGFR 102 >=60 mL/min/1. 73m2 LAB CHEMISTRY METHOD 11/27/2024 3:52 PM [facility] Comment:Calculation based on the Chronic Kidney Disease Epidemiology Collaboration (CKD-EPI) equation refit without adjustment for race. BUN/Creatinine Ratio 10.8 LAB CHEMISTRY METHOD 11/27/2024 3:52 PM [facility] Calcium 8.9 8.5 - 10.5 mg/dL LAB CHEMISTRY METHOD 11/27/2024 3:52 PM EDT [facility] Blood Venous blood specimen / Unknown Venipuncture / Unknown 11/27/2024 11:37 AM EDT 11/27/2024 11:37 AM EDT Amadou Kaufman MD LAB BLOOD ORDERABLES Final Result [facility] [address] [place] [address], * Lipid panel (02/16/2023) LDL/HDL Ratio 3 0 - 4 Triglycerides 68 0 - 150 mg/dL Cholesterol 132 0 - 200 mg/dL HDL 41 >=40 mg/dL LDL Cholesterol 78 0 - 100 mg/dL Blood Venous blood specimen / Unknown Historical Provider LAB BLOOD ORDERABLES Carrie l Result * Hepatitis C Screening (04/17/2013) Pathologist [facility] Hepatitis C Screening abstracted Historical Provider HEALTH MAINTENANCE Final Result from Last 3 Months or Most Recently Relevant to Health Maintenance Insurance [facility] MEDICARE Member Subscriber Plan / Payer (Ef fective 2024-Present) Name:GERRY KAMINSKI Relation to Subscriber:Self Name:Gerry Kaminski Payer ID:[id number] Group ID:[id number] Type:Not on file Address: [place] [address] [address] [address] Care Teams Ornithology Teacher Relationship Specialty Start Date End Date Amadou Kaufman MD [address] [place] [address] PCP - General Internal Medicine 12/23/21
== END 2024-12-10 06:09 | disposition home or self-care (01) ==
LOC: CF 06:08
PROVIDERS: Visit Provider Anesthesiology
DX: M47.812 Spondylosis without myelopathy or radiculopathy, cervical region (principal); M54.2 Cervicalgia; G89.29 Other chronic pain
CPT/HCPCS: 64490; 64491; J2003; J2795; Q9967

== ENCOUNTER 2024-12-10 09:54 | Outpatient (AMB) | payer OTHER, SELFPAY ==
[2024-12-10 10:05] VITALS: BP 133/76; PULSE 80; RESP 18; O2SAT 98
--- NOTE | 2024-12-10 10:05 | MHC.OFFVIS ---
Vital Signs 12/10/24 10:05 12/10/24 10:35 Weight 198 lb BP 133/76 145/80 H Blood Pressure Location Lt brachial Lt brachial Position Sitting Sitting Respiration 18 20 Pulse 80 79 Pulse Source Pulse Oximeter Pulse Oximeter Pulse Oximetry (%) 98 98 Oxygen Delivery Method Room Air Room Air Intake Visit Reasons: BILATERAL DIAGNOSTIC C3, C4, C5 MBB Psychiatrist Required: No Allergies Penicillins Allergy (Mild, Verified 11/05/24 11:07) [facility] History (Reviewed 10/04/24 @ 13:54 by Luiza Rondon, BIOINFORMATICS TEAM MEMBER, SCALE AND SKIP CAR OPERATOR) HTN (hypertension) Pancreatitis, alcoholic, acute Alcohol use Hepatic steatosis Anxiety and depression Chronic obstructive pulmonary disease, unspecified Chronic lumbar radiculopathy Insomnia, unspecified House dust mite allergy Perennial non-allergic rhinitis Former smoker Severe persistent asthma, uncomplicated Hyperlipidemia, unspecified Type 2 diabetes mellitus without complications Elevated IgE level Asthma Obesity, unspecified Gastro-esophageal reflux disease without esophagitis Chronic midline low back pain without sciatica Chronic pain Alcohol use disorder Neck pain Social History (Updated 11/05/24 @ 11:07 by Carol Samayoa [facility]) Alcohol intake: current Alcohol intake frequency: 3 or more drinks per day Alcohol type: beer and hard liquor Patient Tobacco Use Status: Former Tobacco user Substance Use Type: Crack/Cocaine 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 Physical Exam Vital Signs: Last Vital Signs Pulse 79 12/10/24 10:35 Resp 20 12/10/24 10:35 BP 145/80 H 12/10/24 10:35 Pulse Ox 98 12/10/24 10:35 Oxygen Delivery Method Room Air 12/10/24 10:35 Assessment & Plan Assessment & Plan (1) Chronic neck pain: Code(s): M54.2 - Cervicalgia; G89.29 - Other chronic pain Category: Medical (2) Cervical spondylosis: Code(s): M47.812 - Spondylosis without myelopathy or radiculopathy, cervical region Category: Medical Plan C2, C3, C4 right side medial branch block diagnosticRandolph Becerra is very pleasant 86 years old female who is suffering among other things from spondylosis of the cervical spine. He came today to the operating room to receive diagnostic injection as above. Risks and benefits were carefully explained to the patient were risks of bleeding infection peripheral nerve damage spinal cord damage and headache were explained to the patient. She was taken to the operating room and positioned prone on operating table with a pillow under her head. His posterior neck and upper back were prepped with ChloraPrep and draped with sterile self adhesive utility towels. Time-out was performed delineating name and date of of the patient nature of the procedure side and site of the procedure. C-arm was brought over the operating field and sq picture of the C2-C3 and C4 vertebra were delineated on the screen. The lateral masses on the right of above-mentioned vertebra were chosen as the target of the injection. The waistline of the each of the lateral mass was chosen as the endpoint of the needle advancement. After that the projection of the points of interest to the skin were injected with small amount of mixture of lidocaine 2% and ropivacaine 0.5% one-to-one. After that 3 22 gauge 3-1/2 inch needles were driven sequentially to the points of interest under tunnel vision fashion. When the tips of the needles gently contacted the bone injection of the contrast was performed delineating no intrathecal or intravascular spread of the contrast. After that small amount of ropivacaine 0.5% less than 1 cc was injected into each needle location. After that the patient started to complain on unbearable pain on needle insertion. He wanted to stop the procedure. So we will limit the procedure to the right-sided procedure only. We would need to reschedule the patient to come for left-sided procedure. Upon completion of the injections needles were removed sterile Band-Aid was applied. Upon completion of procedure patient was taken to recovery room where he recovered uneventfully.. Orders: Orders FL guidance in treatment room Today M47.812 - Spondylosis without myelopathy or radiculopathy, cervical region Coding Level of Care Code Procedure Only Diagnoses Chronic neck pain M54.2; G89.29 Cervical spondylosis M47.812
[2024-12-10 10:35] VITALS: BP 145/80; PULSE 79; RESP 20; O2SAT 98
== END 2024-12-10 10:35 | disposition home or self-care (01) ==
LOC: HO.PMCPRC 09:54
PROVIDERS: PCP Internal Medicine; Visit Provider Anesthesiology
DX: M47.812 Spondylosis without myelopathy or radiculopathy, cervical region (principal); M54.2 Cervicalgia; G89.29 Other chronic pain
CPT/HCPCS: 64490; 64491

== ENCOUNTER 2025-02-11 06:10 | Outpatient (REF) | payer OTHER, SELFPAY ==
--- NOTE | ~2025-02-11 | FL_ITS ---
EXAMINATION: FL GUIDANCE ONLY HISTORY: M47.812 - Spondylosis without myelopathy or radiculopathy, cervical region COMPARISON: None available. TECHNIQUE: Fluoroscopy time: 38 seconds. Cumulative Dose: 5.7 mGy. DAP: 172.44 uGym2 Images: 4. FINDINGS: Fluoroscopic spot films of the cervical spine is straight needles and contrast material in place at 3 levels. FL/FL guidance in treatment room IMPRESSION: Fluoroscopy during procedure. Please see procedure report for additional information. Electronically signed by: Chris Thomson MD 02/13/2025 07:25 AM EDT
--- OUTSIDE RECORDS SUMMARY | 2025-02-11 06:13 | XMS_ITS | Clinical Summary ---
Author Organization [facility] Address [address] [place] [address] Phone Care Team Providers Care [employer] Social Science Teacher Name Role Phone Flor Coffey MD Primary Care Provider [phone] Social History Tobacco Use Types Packs/Day Years [...] Insurance [place] [id number] [facility] [place] [address] [place] [address] MEDICARE PART A & B Member Subscriber Plan / Payer (Ef fective 2014-) Name:Hernan Mcguire Member ID:[id number] Relation to Subscriber:Self Name:Hernan Mcguire Subscriber ID:[id number] Payer ID:[id number] Group ID:Not on file Type:Medicare Address: [address] [place] MEDIC[place] PART A & B [facility] [place] [address] MEDICARE PART A & B [facility] MED[facility] PART A & B [facility] MEDICARE PART A & B Member Subscriber Plan / Payer (Ef fective 2014-Present) Name:Maynor Hernan Member ID:[id number] Relation to Subscriber:Self Name:Hernan Mcguire Subscriber ID:[id number] Payer ID:[id number] Group ID:Not on file Type:Medicare Address: [address] [place] MEDICARE PART A & B [facility] MEDICARE PART A & B [facility] Care Teams High School Social Science Teacher Relationship Specialty Start Date End Date Flor Coffey MD [address] [place] [address] PCP - General Internal Medicine 06/08/20 Additional Source Comments The information contained in this document represents components of the legal health record. It is not the complete legal health record.[facility]
--- OUTSIDE RECORDS SUMMARY | 2025-02-11 06:13 | XMS_ITS | Encounter Summary ---
Author Organization [facility] Address [address] [place] [address] Phone Care Team Providers Care Automotive Service Manager Name Role Phone Flor Coffey MD Primary Care Provider [phone] Encounter Details Date Type Department Care Team (Late st Contact Info) Description 10/26/2020 Procedure Pass [facility] Endoscopy Admitting Dept Virtual Department [address] [place] [address] Social History Tobacco Use Types Packs/Day Years Used Date Smoking Tobacco: Never Assessed Sex and Gender Information Value Date Recorded Sex Assigned at Not on file Legal Sex Male 9:13 AM EST Gender Identity Not on file Sexual Orientation Not on file documented as of this encounter Plan of Treatment Not on file documented as of this encounter Visit Diagnoses Not on filedocumented in this encounter Care Teams Automotive Service Manager Relationship Specialty Start Date End Date Flor Coffey MD [address] [place] [address] PCP - General Internal Medicine 06/08/20 documented as of this encounter Additional Source Comments The information contained in this document represents components of the legal health record. It is not the complete legal health record.[facility]
--- OUTSIDE RECORDS SUMMARY | 2025-02-11 06:13 | XMS_ITS | Clinical Summary ---
Author Organization [facility] Address [address] [place] [address] Care Team Providers Care Sugar Presser Name Role Phone Flor Coffey MD Primary Care Provider [phone] Allergies No known active allergies Medications Medication [...] of 2) 2010 Influenza Vaccine (#1) 2025 Pneumococcal Vaccine (1 of 1 - PCV) 2025 RSV Adult > 60+ Yrs or [...] age to complete this topic Care Teams Sugar Presser Relationship Specialty Start Date End Date Flor Coffey MD PCP - General Internal Medicine 09/29/21
--- OUTSIDE RECORDS SUMMARY | 2025-02-11 06:13 | XMS_ITS | Clinical Summary ---
Author Organization [address] Address [address] [place] [address] [place] [address] Phone Care Team Providers Care Oracle Database Architect Name Role Phone Amadou Kaufman MD Primary [...] complication, without long-term current use of insulin ([facility] V24, [facility] V28) Use to check blood sugars once a day 100 each 3 08/15/19 25 Active blood-glucose meter kitIndications:Ty pe 2 diabetes mellitus without complication, without long-term current use of insulin ([facility] V24, [facility] V28) Use this machine to test blood sugar once daily 1 each 08/15/19 25 Active FreeStyle Test test stripIndications: Type 2 diabetes mellitus without complication, without long-term current use of insulin ([facility] V24, [facility] V28) Use to check blood sugars once [...] ns:Chronic obstructive pulmonary disease, unspecified COPD type ([facility] V24, [facility] V28) Take 3 mL (2.5 mg total) [...] tablet 1 11/30/19 25 Active Nutritional Drink liquidIndications :Type 2 diabetes mellitus without complication, without long-term current use of insulin ([facility] V24, [facility] V28) Take 1 bottle of boost 30 each 5 01/01/20 25 Active Active Problems Problem Noted Date Diagnosed [...] complication, without long-term current use of insulin ([facility] V24, [facility] V28) 12/05/2018 Perennial allergic rhinitis 05/25/2017 Severe persistent asthma without complication ([facility] V28) 05/25/2017 Insomnia 03/05/2014 Chronic lumbar radiculopathy 05/31/2013 Asthma-COPD overlap syndrome ([facility] V24, [facility] V28) 10/05/2012 Hepatic steatosis 10/11/2010 Encounters Date Type Department Care Team Description 12/31/2024 Telephone Endocrinology - [address] [place] [phone] Carmen Mnan PA 11/29/2024 2:15 PM EDT Office Visit Endocrinology - [address] [place] [phone] Carmen Mann PA Type 2 diabetes mellitus without complication, without long-term current use of insulin ([facility] V24, [facility] V28) (Primary Dx); Primary hypertension; Hyperlipidemia LDL goal <100 from Last 3 Months Immunizations Name Administration [...] (hypertension), benign DM2 (diabetes mellitus, type 2) ([facility] V24, [facility] V28) DX:DM2 (diabetes mellitus, t ype 2) ([facility]) COPD (chronic obstructive pu lmonary disease) ([facility] V24, [facility] V28) DX:COPD (chronic o bstructive pulmonary disease) ([facility]) Anxiety and depression DX:Anxiet y and depression [...] 11:15 AM EDT Office Visit Adult Medicine [address] [phone] Amadou Kaufman MD [address] [place] [address] 03/04/2025 11:00 AM EDT Office Visit Endocrinology - [address] [place], [place] [phone] Carmen Mann PA [address] [place] [address] Health Maintenance Due Date Last Done Comments [...] complication, without long-term current use of insulin ([facility] V24, [facility] V28) BASIC METABOLIC PANEL Routine 11/27/2024 11:37 AM EDT Poorly-controlled hypertension Type 2 diabetes mellitus without complication, without long-term current use of insulin ([facility]/H[facility] V24, [facility] V28) MICROALBUMIN CREATININE URINE RATIO Routine 11/27/2024 11:37 AM EDT Type 2 diabetes mellitus without complication, without long-term current use of insulin ([facility] V24, [facility] V28) HEPATIC FUNCTION PANEL Routine 11/27/2024 11:37 AM EDT Alcohol use disorder in remission HEMOGLOBIN A1C Routine 11/27/2024 11:37 AM EDT Type 2 diabetes mellitus without complication, without long-term current use of insulin ([facility]) PROSTATE SPECIFIC ANTIGEN SCREEN Routine 11/27/2024 11:37 AM EDT Screening for prostate cancer LIPID PANEL Routine 02/16/2023 HEPATITIS C SCREENING Routine 04/17/2013 from Last 3 Months or Most Recently Relevant to Health Maintenance Results * POC glucose manually resulted (11/29/2024 2:50 PM EDT) Pathologist [facility] Glucose POC 129 mg/dL Comment:Fasting Blood Capillary blood specimen / Unknown 11/29/2024 2:50 PM EDT Carmen CHEN POINT OF CARE TEST ENTER/ED IT ORDERABLES Final Result * Prostate specific antigen screen (11/27/2024 11:37 AM EDT) [facility] PSA 3.23 0.00 - 4.00 ng/mL LAB CHEMISTRY METHOD 11/27/2024 4:36 PM EDT [facility] Blood Venous blood specimen / Unknown Venipuncture / Unknown 11/27/2024 11:37 AM EDT 11/27/2024 11:37 AM EDT Narrative [facility] - 11/27/2024 4:36 PM EDT The Siemens Advia Centaur Chemiluminescent Immunoassay is used. Results obtained with different assay methods or kits cannot be used interchangeably. Results cannot be interpreted as absolute evidence of the presence or absence of malignant disease. Amadou Kaufman MD LAB BLOOD ORDERABLES Final Result [facility] [address] [place] [address], [place] [phone] * Microalbumin creatinine urine ratio (11/27/2024 11:37 AM EDT) Pathologist [facility] Creatinine, Urine 80.0 mg/dL LAB CHEMISTRY METHOD 11/27/2024 3:34 PM EDT [facility] Microalb, Ur 10.8 0.0 - 29.0 mg/L LAB CHEMISTRY METHOD 11/27/2024 3:34 PM EDT [facility] Microalb/Creat Ratio 14 <30 mg/g creat LAB CHEMISTRY METHOD 11/27/2024 3:34 PM EDT [facility] Urine Urine specimen obtained by clean catch procedure / Unknown Non-blood Collection / Unknown 11/27/2024 11:37 AM EDT 11/27/2024 11:37 AM EDT Amadou Kaufman MD LAB URINE ORDERABLES Final Result Performing Organization Address [facility]/ZIP Co de Phone Number [facility] [address] [place] [address], [place] [phone] * (ABNORMAL) Hemoglobin A1c (11/27/2024 11:37 AM EDT) Hemoglobin A1C 8.6(H) <6.5 % LAB CHEMISTRY METHOD 11/28/2024 12:05 PM EDT [facility] Mean Bld Glu Estim. 200 mg/dL LAB CHEMISTRY METHOD 11/28/2024 12:05 PM EDT [facility] Blood Venous blood specimen / Unknown Venipuncture / Unknown 11/27/2024 11:37 AM EDT 11/27/2024 11:37 AM EDT Carmen CHEN LAB BLOOD ORDERABLES Final Result Performing Organization Address City/[facility]/ZIP Co de Phone Number [facility] [address] [place] [address], [place] [phone] * Hepatic function panel (11/27/2024 11:37 AM EDT) Total Protein 7.1 6.0 - 8.0 g/dL LAB CHEMISTRY METHOD 11/27/2024 3:52 PM EDT [facility] Albumin 3.9 3.2 - 5.0 g/dL LAB CHEMISTRY METHOD 11/27/2024 3:52 PM EDT [facility] Total Bilirubin 0.3 0.0 - 1.4 mg/dL LAB CHEMISTRY METHOD 11/27/2024 3:52 PM EDT [facility] Bilirubin, Direct 0.1 0.0 - 0.3 mg/dL LAB CHEMISTRY METHOD 11/27/2024 3:52 PM EDT [facility] Bilirubin, Indirect 0.2 0.0 - 1.1 mg/dL LAB CHEMISTRY METHOD 11/27/2024 3:52 PM EDT [facility] ALT (SGPT) 23 10 - 60 unit/L LAB CHEMISTRY METHOD 11/27/2024 3:52 PM EDT [facility] AST (SGOT) 15 10 - 42 unit/L LAB CHEMISTRY METHOD 11/27/2024 3:52 PM EDT [facility] Alkaline Phosphatase 69 42 - 121 unit/L LAB CHEMISTRY METHOD 11/27/2024 3:52 PM EDT [facility] Blood Venous blood specimen / Unknown Venipuncture / Unknown 11/27/2024 11:37 AM EDT 11/27/2024 11:37 AM EDT Amadou Kaufman MD LAB BLOOD ORDERABLES Final Result [facility] [address] [place] [address], * Basic metabolic panel (11/27/2024 11:37 AM EDT) Sodium 140 133 - 145 mmol/L LAB CHEMISTRY METHOD 11/27/2024 3:52 PM EDT [facility] Potassium 3.9 3.5 - 5.5 mmol/L LAB CHEMISTRY METHOD 11/27/2024 3:52 PM EDT [facility] Chloride 103 96 - 110 mmol/L LAB CHEMISTRY METHOD 11/27/2024 3:52 PM EDT [facility] CO2 30 21 - 32 mmol/L LAB CHEMISTRY METHOD 11/27/2024 3:52 PM EDT [facility] Anion Gap 7 3 - 11 LAB CHEMISTRY METHOD 11/27/2024 3:52 PM EDT [facility] Glucose 78 70 - 100 mg/dL LAB CHEMISTRY METHOD 11/27/2024 3:52 PM EDT [facility] BUN 8 5 - 25 mg/dL LAB CHEMISTRY METHOD 11/27/2024 3:52 PM EDT [facility] Creatinine 0.74 0.70 - 1.30 mg/dL LAB CHEMISTRY METHOD 11/27/2024 3:52 PM EDT [facility] eGFR 102 >=60 mL/min/1. 73m2 LAB CHEMISTRY METHOD 11/27/2024 3:52 PM EDT [facility] Comment:Calculation based on the Chronic Kidney Disease Epidemiology Collaboration (CKD-EPI) equation refit without adjustment for race. BUN/Creatinine Ratio 10.8 LAB CHEMISTRY METHOD 11/27/2024 3:52 PM EDT [facility] Calcium 8.9 8.5 - 10.5 mg/dL LAB CHEMISTRY METHOD 11/[facility]24 [facility] Blood Venous blood specimen / Unknown Venipuncture / Unknown 11/27/2024 11:37 AM EDT 11/27/2024 11:37 AM EDT us Amadou Kaufman MD LAB BLOOD ORDERABLES Final Result [facility] [address] [place] [address], * Lipid panel (02/16/2023) LDL/HDL Ratio 3 0 - 4 Triglycerides 68 0 - 150 mg/dL Cholesterol 132 0 - 200 mg/dL HDL 41 >=40 mg/dL LDL Cholesterol 78 0 - 100 mg/dL Blood Venous blood specimen / Unknown us Historical Provider LAB BLOOD ORDERABLES Carrie l Result * Hepatitis C Screening (04/17/2013) Hepatitis C Screening abstracted us Historical Provider HEALTH MAINTENANCE Final Result from Last 3 Months or Most Recently Relevant to Health Maintenance Insurance [employer] Member Subscriber Plan / Payer (Ef fective 2024-Present) Name:GERRY KAMINSKI Relation to Subscriber:Self Name:Gerry Kaminski Payer ID:[id number] Group ID:[id number] Type:Not on file Address: [place] [address] [place] [address] Care Teams Oracle Database Architect Relationship Specialty Start Date End Date Amadou Kaufman MD [address] [facility] [place] PCP - General Internal Medicine 12/23/21
--- OUTSIDE RECORDS SUMMARY | 2025-02-11 06:13 | XMS_ITS ---
Author Name [facility] Organization Unknown Care Team Organization Name Specialty Phone Email Start Date End Da te [facility] Termed, PROVIDER Primary Care 07/27/202212/20 [facility] Aspen [facility]eto Primary Care 03/29/2022 024
== END 2025-02-11 06:11 | disposition home or self-care (01) ==
LOC: CF 06:10
PROVIDERS: Visit Provider Anesthesiology
DX: M47.812 Spondylosis without myelopathy or radiculopathy, cervical region (principal)
CPT/HCPCS: 64490; 64491; J2003; J2795; Q9967

== ENCOUNTER 2025-02-11 08:30 | Outpatient (AMB) | payer OTHER, SELFPAY ==
--- NOTE | 2025-02-11 08:40 | A.OFFVIS_ITS ---
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: No Allergies Penicillins Allergy (Mild, Verified 11/05/24 11:07) ITCHING PFSH Medical History HTN (hypertension) Pancreatitis, alcoholic, acute Alcohol use Hepatic steatosis Anxiety and depression Chronic obstructive pulmonary disease, unspecified Chronic lumbar radiculopathy Insomnia, unspecified House dust mite allergy Perennial non-allergic rhinitis Former smoker Severe persistent asthma, uncomplicated Hyperlipidemia, unspecified Type 2 diabetes mellitus without complications Elevated IgE level Asthma Obesity, unspecified Gastro-esophageal reflux disease without esophagitis Chronic midline low back pain without sciatica Chronic pain Alcohol use disorder Neck pain Social History (Updated 11/05/24 @ 11:07 by Carol [facility] [facility] Alcohol intake: current Alcohol intake frequency: 3 or more drinks per day Alcohol type: beer and hard liquor Patient Tobacco Use Status: Former Tobacco user Substance Use Type: Crack/Cocaine 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 ? ?Informed consent was explained to the patient. All questions were explained and? answered.? The patient was taken inside the operating room where he was positioned prone on the operating table. Time-out was performed delineating correct site, side, the nature of the procedure, patient's allergy, . All operating room staff was participating in OR time-out procedure. ? ? The the upper back and posterior neck was prepped with ChloraPrep and draped with sterile towels.? C-arm was brought over the operating field and sq picture of C3, C4, C5 vertebra were delineated on the screen.? Point of interest were delineated as lateral masses of the vertebras as above with the left waist of each lateral mass as the target of the final needle position.? The projection of the point of interest to the skin were injected with the small amount of local anesthetic lidocaine 2% mixed with ropivacaine 0.5% 1-1 approximately 1 cc.? After that 22 gauge 3.5 inch spinal needles were driven sequentially to the points of interest in tunnel vision fashion. Lateral view update on left side demonstrating appropriate needles positioned. At the point of interests the needle was injected with small amount of the contrast.? The injection of the contrast did not demonstrate any intravascular or intrathecal spread of the contrast.? After that injection of the?ropivacaine 0.5%-1ccof was performed at each needle location.?? after that the needles were removed and Bandaids were applied. Patient tolerated the procedure well he was taken outside of the operating room to recovery room. Orders: Orders FL guidance in treatment room Today M47.812 - Spondylosis without myelopathy or radiculopathy, cervical region Coding Level of Care Code Procedure Only Diagnoses Cervical spondylosis M47.812
[2025-02-11 08:41] VITALS: BP 154/83; PULSE 86; RESP 18; O2SAT 96
== END 2025-02-11 09:07 | disposition home or self-care (01) ==
LOC: HO.PMCPRC 08:30
PROVIDERS: PCP Internal Medicine; Visit Provider Anesthesiology
DX: M47.812 Spondylosis without myelopathy or radiculopathy, cervical region (principal)
CPT/HCPCS: 64490; 64491

== ENCOUNTER → 2025-02-14 10:35 | Outpatient (BNVA) | payer OTHER, SELFPAY | PROVIDERS: PCP Internal Medicine; Visit Provider Registered Nurse Emergency | DX: M47.812 Spondylosis without myelopathy or radiculopathy, cervical region (principal); M54.2 Cervicalgia; M62.838 Other muscle spasm; G89.29 Other chronic pain | CPT/HCPCS: 99212 ==

== ENCOUNTER 2025-02-14 10:37 | Outpatient (AMB) | payer OTHER, SELFPAY ==
--- NOTE | 2025-02-14 10:38 | MHC.OFFVIS ---
Vital Signs 02/14/25 10:41 Height 5 ft 8 in Weight 199 lb 4 oz BMI 30.3 BP 159/91 H Blood Pressure Location Rt brachial Position Sitting Pulse 96 Pulse Source Pulse Oximeter Pulse Oximetry (%) 98 Oxygen Delivery Method Room Air Intake Visit Reasons: S/P LEFT DIAGNOSTIC C3, C4, C5 MBB Intake Note: Pain today 4.5/10 Tomato Paste Maker Required: No Accompanied by: Self / Same As Patient Allergies Penicillins Allergy (Mild, Verified 02/14/25 10:45) ITCHING HPI Comments Details: The patient is a 64-year-old male presenting with chronic neck pain and assess response to recent diagnostic cervical medial branch blocks. Cervical medial branch blocks were performed on the right side on December 10 and , and on the left side on February 11 and , performed by Dr. Pedersen. The patient reported that the right side procedure initially reduced pain by approximately 70%, but the pain level was around 8 to 8.5 out of 10 prior to the procedure on the left side. Post-procedure on left side, the patient experienced improved range of motion and pain relief, questioning the necessity of a second procedure. Patient was informed today that injections were diagnostic and provided only temporary pain relief. Patient reports he noted significant improvement in his range of motion, daily functioning and sleep since injections. He reports pain today 4.5/10 since procedure and states his baseline neck pain is 7-8/10, at times reaching 10/10 in intensity. The patient has diabetes mellitus with an A1c level above 10, which complicates the management of his neck pain and radicular symptoms. He also has known carpal tunnel syndrome and was offered CTS release by [facility] but has not scheduled procedure yet. The patient is working with an Line Clearance Foreman to manage his diabetes and is aware of the dietary restrictions necessary to control his blood sugar levels. Patient admits his eating habits have been out of ADA diet plan. He reports having Lead Blender provider at [facility]. - Affect: Pain impacts the patient's mood and daily activities, but he reports improved range of motion and sleep post-procedure. - Analgesia: Currently using gabapentin and baclofen; considering tizanidine for additional relief - Adverse Effects: No adverse effects from current medications reported. - Activities of Daily Living: Pain interferes with daily activities, but improvements noted post-procedure. - Aberrant Drug Related Behaviors: No signs of medication misuse reported. Past Procedures: 02/11/25: Left Diagnostic C3-C4-C5 MBB-50% pain relief for 6 hours 12/10/24: Right Diagnostic C2-C3-C4 MBB-70% pain relief for 6-8 hours PRIOR 10/04/24 Luiza Rondon ASPHALT ROLLER OPERATOR: The patient is a 63-year-old male presenting for follow up, review of recent MRI/EMG. 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 His diabetes management issue is also noted, with recent lab values indicating an elevated HbA1c level of 10. Diabetes treatment adjustments are underway. Concurrently, cervical spine pain has progressed due to arthritis, bone spurs, and narrowing, primarily affecting the upper cervical region and extending to the lower skull, causing headaches and stiffness. Baclofen provides significant relief, which is crucial given the limitations of other analgesics due to diabetes. Ongoing comprehensive management of all these conditions is evident, with an emphasis on preventing complications from poorly controlled diabetes, given its impact on overall management and procedural eligibility. Physical therapy was attempted but resulted in increased discomfort. - Onset and Timing: Recurrent, no specific onset period stated for cervical or arm pain. - Quality and Character: Nerve-related pain in arm due to carpal tunnel; cervical pain with stiffness, headaches. - Primary Location: Right arm and upper cervical spine. - Radiation: From cervical region to lower skull causing headaches. - Exacerbating Factors: Unspecified daily activities. - Relieving Factors: Baclofen provides relief. - Interference with Activities: Occasional muscle weakness; title vehicle service attendant loss affecting daily comfort. - Affect: Patient experiences occasional discomfort and uncertainty about pain's impact on lifestyle, managing ongoing diabetes-related frustrations. - Analgesia: Baclofen used for relief. - Adverse Effects: None specifically noted with current Baclofen use. - Activities of Daily Living: Pain levels do not severely hinder routine - Aberrant Drug Related Behaviors: None reported. [facility] Medical History HTN (hypertension) Pancreatitis, alcoholic, acute Alcohol use Hepatic steatosis Anxiety and depression Chronic obstructive pulmonary disease, unspecified Chronic lumbar radiculopathy Insomnia, unspecified House dust mite allergy Perennial non-allergic rhinitis Former smoker Severe persistent asthma, uncomplicated Hyperlipidemia, unspecified Type 2 diabetes mellitus without complications Elevated IgE level Asthma Obesity, unspecified Gastro-esophageal reflux disease without esophagitis Chronic midline low back pain without sciatica Chronic pain Alcohol use disorder Neck pain Social History (Updated 11/05/24 @ 11:07 by JAYME Lazaro) Alcohol intake: current Alcohol intake frequency: 3 or more drinks per day Alcohol type: beer and hard liquor Patient Tobacco Use Status: Former Tobacco user Substance Use Type: Crack/Cocaine 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 - Endocrine: Reports diabetes mellitus with elevated A1C>10, due for recheck next month. All systems reviewed & are unremarkable except as noted in HPI and below Physical Exam General: awake, alert, oriented. Answers questions appropriately. Fully engaged in examination. Skin: warm, dry, intact HEENT: Normocephalic. Hearing intact. Cardiac: External chest normal in appearance. Respiratory: No cough, audible wheezing or stridor. Abdomen: without gross distension. MS: No obvious swelling or deformities. Able to transition from sit to stand unassisted. Decreased cervical ROM in all planes, increased pain with extension and lateral rotations. Mild TTP to palpation over midline cervical vertebrae and cervical paraspinal muscles Neurological: Oriented to person, place, time and situation. Thought process intact. No gait abnormalities appreciated. Psychiatric: Appropriate mood and affect. Good judgment and insight. Results Reviewed Results Reviewed: 09/18/24 EMG IMPRESSION: 1. This is an abnormal study. 2. There is electrodiagnostic evidence for bilateral moderate-severe median neuropathy at the wrist, consistent with carpal tunnel syndrome. 3. There is no electrodiagnostic evidence for ulnar neuropathy 4. There is no electrodiagnostic evidence for brachial plexopathy, or cervical radiculopathy on the right side. 09/07/24 MRI CS FINDINGS: Craniocervical junction is intact. No bone marrow STIR signal abnormality. Normal alignment. Multilevel disc desiccation, C3 C7. Buckling deformity of the dorsal aspect of the thecal sac at C3-4, C4-5, C5-6 and T1-T2 levels likely related to ligamentum flavum hypertrophy. The cervical spinal cord signal is normal. C2-3: Left-sided the disc osteophyte complex formation. No cord compression. Left neuroforamina narrowing on a degenerative basis. C3-4: Broad-based disc osteophyte compresses formation. Facet joint and ligamentum flavum hypertrophy. CSF effacement of the thecal sac abutting the cord. No cord signal abnormality. Bilateral neuroforamina narrowing on a degenerative basis. C4-5: Broad-based disc osteophyte compresses formation. Facet joint and ligamentum flavum hypertrophy. CSF effacement of the thecal sac. No cord signal abnormality. Bilateral neuroforamina narrowing on a degenerative basis. C5-6: Broad-based disc osteophyte compresses formation. No cord compression. Bilateral neuroforamina narrowing on a degenerative basis. C5-6: Right based disc osteophyte compresses formation. No cord compression. Bilateral neuroforamina narrowing on a degenerative basis. C6-7: Right base disc osteophyte compresses formation. No cord compression. Bilateral, left greater than right neuroforamina narrowing on a degenerative basis. C7-T1: Right-sided disc osteophyte consummation. No cord compression. Right neuroforamina narrowing on a degenerative basis. T1-2: Left facet joint hypertrophy as well as ligamentum flavum resulting in ventral deformity of the thecal sac and the left dorsal aspect of the spinal cord. No cord signal abnormality. No neuroforamina stenosis. Flow-void signal within the main vessels is normal. Left vertebral artery is dominant. No prevertebral compartment hematoma, mass or fluid collection. IMPRESSION: Central spinal canal stenosis without cord compression, cord edema and or myelopathy on a multifactorial basis at C3-4 and C4-5 levels. Left facet joint hypertrophy and ligamentum flavum resulting and dorsal deformity of the thecal sac and spinal cord at T1-2 without cord edema and or myelopathy. Multilevel neuroforamina narrowing on a degenerative basis, C3-4, C4-5 C5-6 and C7-T1. 05/11/22 XR CS Mild degenerative changes Assessment & Plan Assessment & Plan (1) Cervical spondylosis: Code(s): M47.812 - Spondylosis without myelopathy or radiculopathy, cervical region Category: Medical (2) Chronic neck pain: Code(s): M54.2 - Cervicalgia; G89.29 - Other chronic pain Category: Medical (3) Muscle spasms of neck: Code(s): M62.838 - Other muscle spasm Category: Medical Plan The management plan for the patient's cervical spondylosis includes continued use of gabapentin and baclofen, with the addition of tizanidine at mid-day and bedtime to potentially aid in pain relief and muscle spasms reduction. The patient is advised to monitor his blood pressure regularly and avoid simultaneous intake of tizanidine and blood pressure medications. For diabetes management, the patient is encouraged to adhere to dietary recommendations and follow up with his Line Clearance Foreman to monitor his A1c levels. The patient is informed that achieving an A1c closer to 7.5 may allow for consideration of additional interventions such as a Sprint PNS trial. We also discussed repeating diagnostic cervical medial branch blocks for potential RFA. All questions and concerns have been answered and patient agreed with the treatment plan. Follow up with Luiza MURDOCK once A1C is improved and sooner as needed. Patient was informed and verbally consented to the use of an ambient scribe for clinic note documentation during this visit. Medications: New tizanidine 4 mg PO BID PRN 60 tabs 0RF muscle spasticity 30 days G89.29 - Other chronic pain, M47.812 - Spondylosis without myelopathy or radiculopathy, cervical region, M54.2 - Cervicalgia, M62.838 - Other muscle spasm Coding Level of Care Code Est Pt Level 3 (40672) Complex EM visit Add On G2211 Diagnoses Cervical spondylosis M47.812 Chronic neck pain M54.2; G89.29 Muscle spasms of neck M62.838
[2025-02-14 10:41] VITALS: BP 159/91; PULSE 96; O2SAT 98; BMI 30.3
== END 2025-02-14 11:05 | disposition home or self-care (01) ==
LOC: HO.PMC 10:37
PROVIDERS: PCP Internal Medicine; Visit Provider Nurse Practitioner Family
DX: M47.812 Spondylosis without myelopathy or radiculopathy, cervical region (principal); M54.2 Cervicalgia; G89.29 Other chronic pain; M62.838 Other muscle spasm
CPT/HCPCS: 99213; G2211